=== PATIENT | male | born 1975 | race Caucasian/White ===

== ENCOUNTER → 2017-02-12 | Outpatient (CLI) | payer MEDICAID, SELFPAY | PROVIDERS: Family Provider Emergency Medicine; Visit Provider Nurse Practitioner Family | DX: Z02.4 Encounter for examination for driving license (principal) ==

== ENCOUNTER → 2017-05-21 09:54 | Outpatient (CLI) | payer SELFPAY | PROVIDERS: PCP Emergency Medicine; Visit Provider Nurse Practitioner Family | DX: Z02.4 Encounter for examination for driving license (principal) ==

== ENCOUNTER → 2019-03-28 18:14 | Outpatient (CLI) | payer OTHER, SELFPAY ==
[2019-03-28 18:59] LABS: Basophils % 0.9 % (0.1-2.0); Eosinophils # 0.2 K/mm3 (0.0-0.4); Eosinophils % 4.2 % (0.1-12.0); Hematocrit 41.5 % (42.0-52.0); Hemoglobin 14.1 g/dL (14.1-18.0); Lymphocytes # 1.5 K/mm3 (0.7-4.5); Lymphocytes % 30.6 % (10-50); Mean Corpuscular Hemoglobin 31.5 pg (27.0-31.2); Mean Corpuscular Volume 92.5 fl (80-94); Mean Platelet Volume 8.6 fl (7.4-10.4); Monocytes # 0.4 K/mm3 (0.1-1.0); Monocytes % 7.6 % (1.7-9.3); Neutrophils # 2.8 K/mm3 (1.8-7.8); Neutrophils % 56.7 % (37.0-80.0); Platelet Count 207 K/mm3 (142-424); Red Blood Count 4.49 M/mm3 (4.60-6.20); Red Cell Distribution Width 13.1 % (11.5-17.5); White Blood Count 4.9 K/mm3 (4.8-10.8)
[2019-03-28 19:09] LABS: Alanine Aminotransferase 69 U/L (12-78); Albumin Level 4.1 gm/dL (3.4-5.0); Albumin/Globulin Ratio 1.6 (1.1-1.8); Alkaline Phosphatase 76 U/L (46-116); Anion Gap 13.1 mEq/L (5-15); Aspartate Amino Transferase 29 U/L (15-37); Bilirubin,Total 0.4 mg/dL (0.2-1.0); Blood Urea Nitrogen 11 mg/dL (7-18); Calcium 8.6 mg/dL (8.5-10.1); Carbon Dioxide 28 mmol/L (21.0-32.0); Chloride 102 mmol/L (98-107); Creatinine,Serum 1.26 mg/dL (0.70-1.30); Estimated Glomerular Filt Rate 62 ml/min (>60); GFR (African American) 75 ML/MIN (>60); Globulin 2.6 gm/dl (1.3-3.2); Glucose 283 mg/dL (74-106); Potassium 4.1 mmoL/L (3.5-5.1); Sodium 139 mmol/L (136-145); Total Protein,Serum 6.7 gm/dL (6.4-8.2)
[2019-03-28 19:58] LABS: Erythrocyte Sedimentation Rate 15 mm/hr (0-15)
[2019-03-30 16:48] LABS: Hemoglobin A1C 7.9 % (0.0-7.0)
== END ==
PROVIDERS: Visit Provider Emergency Medicine
DX: K52.9 Noninfective gastroenteritis and colitis, unspecified (principal); R73.9 Hyperglycemia, unspecified
CPT/HCPCS: 80053; 83036; 85025; 85651

== ENCOUNTER → 2019-04-07 08:17 | Outpatient (CLI) | payer OTHER, SELFPAY ==
--- NOTE | 2019-04-07 08:24 | MR_ITS ---
PROCEDURE: MR HEAD/BRAIN WO CON CLINICAL INDICATION: headaches Severe current headache COMPARISON: No exams were available for comparison TECHNIQUE: Routine multiplanar multi echo sequences are performed without gadolinium enhancement. FINDINGS: No midline shift, mass effect, intracranial hemorrhage, or hydrocephalus. No evidence of acute infarction The cerebellopontine angles, cerebellum, and brainstem are unremarkable. There is normal soliman-white matter differentiation with no abnormal white matter signal intensity evident. The pituitary, optic chiasm, corpus callosum, and craniocervical junction have an unremarkable appearance. No mastoid effusion or sinus air-fluid level. There is a small retention cyst in the floor the right maxillary sinus with mild mucosal thickening of the right maxillary sinus floor. There tension cyst measures approximately 12 mm. IMPRESSION: No acute intracranial findings Dictated by: Elgin Becerril MD 04/09/2019 09:31 Electronically signed by Elgin Becerril MD in [place] 04/09/2019 09:31
--- NOTE | 2019-04-07 08:58 | XR_ITS ---
PROCEDURE: XR CERVICAL SPINE 5V CLINICAL INDICATION: neck pain Neck pain with headache COMPARISON: No exams were available for comparison FINDINGS: Normal alignment. No fracture or dislocation. Minimal degenerative disc disease is noted at C5-C6 with small anterior osteophytes. The foramina are widely patent. No evidence of cervical rib or lytic or blastic change. IMPRESSION: Minimal degenerative disc disease at C5-C6 Dictated by: Elgin Becerril MD 04/07/2019 13:14 Electronically signed by Elgin Becerril MD in [place] 04/07/2019 13:14
== END ==
PROVIDERS: PCP Emergency Medicine; Visit Provider Emergency Medicine
DX: R51 Headache (principal); M54.2 Cervicalgia
CPT/HCPCS: 70551; 72050

== ENCOUNTER 2019-09-18 12:10 | Emergency (ER) | payer OTHER, SELFPAY ==
[2019-09-18 12:12] VITALS: BP 167/129; PULSE 103; RESP 18; TEMP 36.6; O2SAT 97; BMI 34.0
--- NOTE | 2019-09-18 12:19 | HMH.EDEXTP ---
ED Disposition Clinical Impression: Shoulder injury Qualifiers: Encounter type: initial encounter Laterality: right Qualified Code(s): S49.91XA - Unspecified injury of right shoulder and upper arm, initial encounter Disposition: Home, Self-Care Condition on Discharge: Good Instructions: DI for Acute Pain -- Adult, DI for Shoulder Sprain Referrals: Estephanie Hooks MD [Physician] - 3 days - Critical Care Critical Care Time: No Attestation: On , the high probability of a clinically significant, sudden or life threatening deterioration of the following system(s) required my full and direct attention, intervention and personal management. The time I documented below is in addition to time spent performing reported procedures but includes the following listed in this critical care notation. Medical Decision Making - Medical Records Medical records reviewed: Yes: I reviewed the patient's medical records. - Lance Inquiry Pt receiving controlled substance: No Vital Signs: 09/18/19 12:12 Temperature 98 F Temperature Source Oral Pulse Rate [Left Radial] 103 H Respiratory Rate 18 Blood Pressure [Right Arm] 167/129 H Blood Pressure Mean [Right Arm] 141 Blood Pressure Position [Right Arm] Sitting 02 Sat by Pulse Oximetry 97 Oxygen Delivery Method Room Air Orders (Tests/Meds): ED MEDICATIONS Discontinued Medications Generic Name Dose Route Start Last Admin Trade Name Freq PRN Reason Stop Dose Admin Ibuprofen 600 mg 09/18/19 12:22 09/18/19 12:26 Motrin 600mg Tablet PO 09/18/19 12:23 600 mg ONCE ONE Administration ORDERS Category Date Time Status Humerus XR right [XR humerus RT] Stat Exams 09/18/19 12:21 Taken XR shoulder RT min 2V Stat Exams 09/18/19 12:21 Taken - Radiology Data #1 Image(s): Humerus Image Reviewed: Yes I reviewed the patient's radiology image Preliminary Findings: Normal/NAD #2 Image(s): Shoulder Image Reviewed: Yes I reviewed the patient's radiology image Preliminary Findings: Normal/NAD Medical Decision Narrative: Shoulder x-ray and humerus x-ray with no acute fracture or dislocation. Possible rotator cuff injury. Given sling, recommended anti-inflammatories, rest and follow-up outpatient with orthopedic surgery for further evaluation. Extremity Problem HPI - General Stated complaint: AO 09/15/19 fall possible broken R shoulder Time Seen by Provider: 09/18/19 12:19 Mode of Arrival: Ambulatory Source of Information: Patient Limitations: No Limitations - History of Present Illness HPI Narrative: This is a 43-year-old male with no significant past medical history, [id number], who presents to the emergency department for pain in the right proximal humerus that radiates up to his shoulder and towards his head after a fall that occurred 3 days ago. Any sort of movement makes the pain worse. He had a mechanical fall, tripping and falling onto his right elbow onto the sidewalk. He denies any pain in his elbow, forearm, wrist, hand. He did not hit his head, denies any loss of consciousness. Pain better with rest. - Related Data Previous Rx's Medication Instructions Recorded bnxopkgzpf-[id number]-gqbvxxhy 1 cap PO Q6H PRN #15 cap 03/28/19 50 mg-300 mg-40 mg capsule aspirin 81 mg tablet,delayed 81 mg PO DAILY #90 tab 04/12/19 release topiramate 50 mg tablet See Rx Instructions .ROUTE 05/03/19 .COMPLEX #90 tab atorvastatin 10 mg tablet See Rx Instructions .ROUTE 07/26/19 .COMPLEX #90 tab lisinopril 10 mg tablet See Rx Instructions .ROUTE 07/26/19 .COMPLEX #90 tab metformin 500 mg tablet See Rx Instructions .ROUTE 07/26/19 .COMPLEX #90 tab Allergies Allergy/AdvReac Type Severity Reaction Status Date / Time Penicillins [PENICILLINS] Allergy Unknown Verified 03/28/19 13:41 [facility] History - Hepatitis A Screen Attestation statement:: This patient has been screened for Hepatitis A risk factors. I hav
--- NOTE | 2019-09-18 12:21 | XR_ITS ---
PROCEDURE: XR SHOULDER RT MIN 2V CLINICAL INDICATION: Fall x 3 days ago, prox humerus/shoulder pain Limited movements of the shoulder. COMPARISON: No exams were available for comparison FINDINGS: No fracture or dislocation. No lytic or blastic change. There is normal mineralization. The joint spaces: Hypertrophic osteoarthrosis of the acromioclavicular and glenoid humeral articulations. Other findings:The visualized right clavicle, acromion, scapular line proximal right humerus appear intact. IMPRESSION: 1. No acute findings. 2. Hypertrophic osteoarthrosis of the right AC joint. Mild/moderate arthritis of the right glenohumeral articulation. Dictated by: Valentin Scott 09/18/2019 13:29 Electronically signed by Valentin Scott in [place] 09/18/2019 13:29
--- NOTE | 2019-09-18 12:21 | XR_ITS ---
PROCEDURE: XR HUMERUS RT CLINICAL INDICATION: fall, prox humerus/shoulder pain COMPARISON: No exams were available for comparison FINDINGS: No fracture or dislocation. No lytic or blastic change. There is normal mineralization. The joint spaces: Possible mild/moderate osteoarthrosis of the acromioclavicular and glenohumeral articulations of the right shoulder. Other findings:There is an enthesophyte of the olecranon seen posteriorly on the lateral view, indicative of calcific triceps tendinopathy. Likely there is soft tissue swelling of the extremity proximal to the elbow joint. Recommend clinical correlation IMPRESSION: 1. Negative for acute fracture or dislocation. 2. Possible mild right shoulder osteoarthrosis. 3. Posteriorly an enthesophyte of the olecranon, possibly triceps calcific tendinopathy. Dictated by: Valentin Scott 09/18/2019 13:23 Electronically signed by Valentin Scott in [place] 09/18/2019 13:23
[2019-09-18 13:10] VITALS: BP 151/115; PULSE 99; RESP 18; TEMP 36.6; O2SAT 97
== END 2019-09-18 13:11 | disposition home or self-care (01) ==
PROVIDERS: Emergency Provider Emergency Medicine; PCP Emergency Medicine
DX: S49.91XA Unspecified injury of right shoulder and upper arm, initial encounter (principal); W01.0XXA Fall on same level from slipping, tripping and stumbling without subsequent striking against object, initial encounter; Y92.019 Unspecified place in single-family (private) house as the place of occurrence of the external cause; I10 Essential (primary) hypertension; E11.9 Type 2 diabetes mellitus without complications; Z79.84 Long term (current) use of oral hypoglycemic drugs; F41.9 Anxiety disorder, unspecified; Z88.0 Allergy status to penicillin; Z79.899 Other long term (current) drug therapy
CPT/HCPCS: 73030; 73060; 99282

== ENCOUNTER → 2019-10-04 14:02 | Outpatient (CLI) | payer OTHER, SELFPAY ==
[2019-10-04 14:22] LABS: Microalbumin/Creatinine Ratio 30.6
[2019-10-04 14:23] LABS: Chloride 100 mmol/L (98-107); Potassium 4.2 mmoL/L (3.5-5.1); Sodium 138 mmol/L (136-145)
[2019-10-04 14:25] LABS: Blood Urea Nitrogen 9 mg/dl (9-20); Estimated Glomerular Filt Rate 122 ml/min (>60); GFR (African American) 148 ML/MIN (>60)
[2019-10-04 14:26] LABS: Alanine Aminotransferase 44 U/L (12-78); Albumin Level 4.6 g/dl (3.5-5.0); Albumin/Globulin Ratio 1.7 (1.1-1.8); Alkaline Phosphatase 60 U/L (38-126); Anion Gap 16.2 mEq/L (5-15); Aspartate Amino Transferase 32 U/L (17-59); Bilirubin,Total 0.7 mg/dl (0.2-1.3); Carbon Dioxide 26 mmol/L (22.0-30.0); Cholesterol 214 mg/dl (140-200); Globulin 2.7 g/dL (1.3-3.2); Total Protein,Serum 7.3 g/dl (6.3-8.2); Triglycerides 206 mg/dl (30-150); VLDL Cholesterol 41 mg/dL (0-40)
[2019-10-04 14:27] LABS: Calcium 9.6 mg/dl (8.4-10.2); Chol/HDL Ratio 4.7 (1-3.5); Glucose 242 mg/dl (74-100); HDL Cholesterol 46 mg/dl (40-60)
[2019-10-04 14:37] LABS: Direct LDL Cholesterol 121.74 mg/dL (100-129)
[2019-10-04 14:39] LABS: Basophils % 0.5 % (0.1-2.0); Eosinophils # 0.1 K/mm3 (0.0-0.4); Eosinophils % 1.6 % (0.1-12.0); Hematocrit 44.1 % (42.0-52.0); Hemoglobin 15.7 g/dL (14.1-18.0); Lymphocytes # 1.4 K/mm3 (0.7-4.5); Lymphocytes % 22.3 % (10-50); Mean Corpuscular HGB Conc 35.6 g/dL (31.8-35.4); Mean Corpuscular Hemoglobin 32.3 pg (27.0-31.2); Mean Corpuscular Volume 90.9 fl (80-94); Mean Platelet Volume 8.5 fl (7.4-10.4); Monocytes # 0.3 K/mm3 (0.1-1.0); Monocytes % 5.2 % (1.7-9.3); Neutrophils # 4.6 K/mm3 (1.8-7.8); Neutrophils % 70.4 % (37.0-80.0); Platelet Count 257 K/mm3 (142-424); Red Blood Count 4.85 M/mm3 (4.60-6.20); Red Cell Distribution Width 13.5 % (11.5-17.5); White Blood Count 6.5 K/mm3 (4.8-10.8)
[2019-10-04 14:43] LABS: T4 (Thyroxine) 9.2 ug/dl (5.53-11.0)
[2019-10-04 14:55] LABS: Creatinine,Urine Random 262 mg/dL (Not Estab.)
[2019-10-04 14:56] LABS: Thyroid Stimulating Hormone 0.39 uIU/mL (0.465-4.68)
[2019-10-04 15:14] LABS: Hemoglobin A1C 8.8 % (4.0-6.0)
== END ==
PROVIDERS: Visit Provider Nurse Practitioner Family
DX: E11.9 Type 2 diabetes mellitus without complications (principal); R53.83 Other fatigue; Z79.84 Long term (current) use of oral hypoglycemic drugs; Z79.899 Other long term (current) drug therapy
CPT/HCPCS: 80053; 80061; 82043; 82570; 83036; 84436; 84443; 85025

== ENCOUNTER → 2019-10-24 13:24 | Outpatient (CLI) | payer OTHER, SELFPAY ==
--- NOTE | 2019-10-24 13:25 | MR_ITS ---
PROCEDURE: MR SHOULDER RT WO CON CLINICAL INDICATION: Rt shoulder pain COMPARISON: No exams were available for comparison TECHNIQUE: Routine multiplanar multi echo sequences are performed without gadolinium enhancement. FINDINGS: There is a complete tear involving the supraspinatus tendon with retraction of the musculotendinous fibers. Fluid is present in the subacromion subdeltoid region. The infraspinatus tendon shows some thickening distally with oblique areas of increased T2 signal probably related to fluid infiltrating into the tendon fibers from the shoulder joint effusion. Partial tear is are also a consideration. A complete tear is not felt to be present. The subscapularis and teres minor tendons are intact. There is a medium-sized shoulder joint effusion. No obvious labral tear. The bicipital tendon is in place. There is focal increased T2 signal along the humeral head laterally and could be posttraumatic or secondary to subchondral cystic changes. There are hypertrophic changes of the acromioclavicular joint. IMPRESSION: 1. Complete tear of the supraspinatus tendon with retraction of the musculotendinous fibers. 2. Moderate size shoulder joint effusion with tendinopathy/tendinosis of the infraspinatus tendon with scattered oblique areas of increased T2 signal which may be due to fluid between the tendon fibers. Partial tear could have a similar appearance 3. Bone contusion versus subchondral cystic change of the humeral head laterally Dictated by: Elgin Becerril MD 10/24/2019 15:12 Elgin Bceerril MD in [place] 10/24/2019 15:12
== END ==
PROVIDERS: PCP Emergency Medicine; Visit Provider Orthopaedic Surgery
DX: S49.91XA Unspecified injury of right shoulder and upper arm, initial encounter (principal)
CPT/HCPCS: 73221

== ENCOUNTER → 2020-05-22 17:31 | Outpatient (CLI) | payer OTHER, SELFPAY ==
[2020-05-22 17:56] LABS: Basophils % 0.4 % (0.1-2.0); Eosinophils # 0.1 K/mm3 (0.0-0.4); Eosinophils % 1.1 % (0.1-12.0); Hematocrit 45.3 % (42.0-52.0); Hemoglobin 15.5 g/dL (14.1-18.0); Lymphocytes # 1.8 K/mm3 (0.7-4.5); Lymphocytes % 25.1 % (10-50); Mean Corpuscular HGB Conc 34.2 g/dL (31.8-35.4); Mean Corpuscular Hemoglobin 30.5 pg (27.0-31.2); Mean Corpuscular Volume 89.3 fl (80-94); Mean Platelet Volume 7.5 fl (7.4-10.4); Monocytes # 0.4 K/mm3 (0.1-1.0); Monocytes % 5.9 % (1.7-9.3); Neutrophils # 4.7 K/mm3 (1.8-7.8); Neutrophils % 67.5 % (37.0-80.0); Platelet Count 260 K/mm3 (142-424); Red Blood Count 5.07 M/mm3 (4.60-6.20); Red Cell Distribution Width 14.6 % (11.5-17.5)
[2020-05-22 18:02] LABS: Alanine Aminotransferase 22 U/L (12-78); Albumin Level 5.1 g/dl (3.5-5.0); Alkaline Phosphatase 70 U/L (38-126); Anion Gap 16.1 mEq/L (5-15); Aspartate Amino Transferase 22 U/L (17-59); Bilirubin,Total 0.5 mg/dl (0.2-1.3); Blood Urea Nitrogen 12 mg/dl (9-20); Calcium 9.9 mg/dl (8.4-10.2); Carbon Dioxide 27 mmol/L (22.0-30.0); Chloride 100 mmol/L (98-107); Chol/HDL Ratio 5.6 (1-3.5); Cholesterol 242 mg/dl (140-200); Estimated Glomerular Filt Rate 104 ml/min (>60); GFR (African American) 126 ML/MIN (>60); Globulin 2.5 g/dL (1.3-3.2); Glucose 173 mg/dl (74-100); HDL Cholesterol 43 mg/dl (40-60); Potassium 4.1 mmoL/L (3.5-5.1); Sodium 139 mmol/L (136-145); Total Protein,Serum 7.6 g/dl (6.3-8.2); Triglycerides 334 mg/dl (30-150); VLDL Cholesterol 67 mg/dL (0-40)
[2020-05-22 18:13] LABS: Direct LDL Cholesterol 136.13 mg/dL (100-129)
[2020-05-22 18:19] LABS: Free T4 (Free Thyroxine) 1.01 ng/dl (0.78-2.19)
[2020-05-22 18:33] LABS: Thyroid Stimulating Hormone 1.23 uIU/mL (0.465-4.68)
== END ==
PROVIDERS: Visit Provider Emergency Medicine
DX: E11.9 Type 2 diabetes mellitus without complications (principal); I10 Essential (primary) hypertension; Z79.84 Long term (current) use of oral hypoglycemic drugs
CPT/HCPCS: 80053; 80061; 83036; 84439; 84443; 85025

== ENCOUNTER → 2020-06-19 18:09 | Outpatient (CLI) | payer OTHER, SELFPAY ==
[2020-06-19 18:57] LABS: Anion Gap 14.3 mEq/L (5-15); Blood Urea Nitrogen 11 mg/dl (9-20); Calcium 9.6 mg/dl (8.4-10.2); Carbon Dioxide 28 mmol/L (22.0-30.0); Chloride 101 mmol/L (98-107); Estimated Glomerular Filt Rate 104 ml/min (>60); GFR (African American) 126 ML/MIN (>60); Glucose 137 mg/dl (74-100); Potassium 4.3 mmoL/L (3.5-5.1); Sodium 139 mmol/L (136-145)
== END ==
PROVIDERS: Visit Provider Emergency Medicine
DX: E11.9 Type 2 diabetes mellitus without complications (principal); Z79.84 Long term (current) use of oral hypoglycemic drugs
CPT/HCPCS: 80048

== ENCOUNTER → 2020-08-16 18:09 | Outpatient (CLI) | payer OTHER, SELFPAY ==
[2020-08-16 18:55] LABS: Amphetamine/Metha Screen,Urine Negative ng/ml (<1000)
[2020-08-16 18:56] LABS: Barbiturates Screen,Urine Negative ng/ml (<200); Benzodiazepines Screen,Urine Negative ng/ml (<200)
[2020-08-16 18:57] LABS: Cannabinoid Screen,Urine Negative ng/ml (<50)
[2020-08-16 18:58] LABS: Cocaine Screen,Urine Negative ng/ml (<300); Methadone Screen,Urine Negative ng/ml (<300)
[2020-08-16 18:59] LABS: Opiate Screen,Urine Positive ng/ml (<300)
[2020-08-16 19:00] LABS: Phencyclidine Screen,Urine Negative ng/ml (<25)
== END ==
PROVIDERS: Visit Provider Emergency Medicine
DX: S49.90XA Unspecified injury of shoulder and upper arm, unspecified arm, initial encounter (principal); G62.9 Polyneuropathy, unspecified
CPT/HCPCS: 80305

== ENCOUNTER → 2020-10-18 17:58 | Outpatient (CLI) | payer OTHER, SELFPAY ==
[2020-10-18 19:49] LABS: Microalbumin/Creatinine Ratio 114.2
[2020-10-18 20:43] LABS: Creatinine,Urine Random 286 mg/dL (Not Estab.)
[2020-10-18 20:44] LABS: Hemoglobin A1C 8.4 % (4.0-6.0)
== END ==
PROVIDERS: Visit Provider Emergency Medicine
DX: E11.9 Type 2 diabetes mellitus without complications (principal); Z79.84 Long term (current) use of oral hypoglycemic drugs
CPT/HCPCS: 82043; 82570; 83036

== ENCOUNTER → 2020-12-18 18:20 | Outpatient (CLI) | payer OTHER, SELFPAY ==
[2020-12-18 20:35] LABS: Amphetamine/Metha Screen,Urine Negative ng/ml (<1000)
[2020-12-18 20:36] LABS: Barbiturates Screen,Urine Negative ng/ml (<200)
[2020-12-18 20:37] LABS: Benzodiazepines Screen,Urine Negative ng/ml (<200); Cannabinoid Screen,Urine Negative ng/ml (<50)
[2020-12-18 20:38] LABS: Cocaine Screen,Urine Negative ng/ml (<300)
[2020-12-18 20:39] LABS: Methadone Screen,Urine Negative ng/ml (<300); Opiate Screen,Urine Positive ng/ml (<300)
[2020-12-18 20:40] LABS: Phencyclidine Screen,Urine Negative ng/ml (<25)
== END ==
PROVIDERS: Visit Provider Emergency Medicine
DX: Z79.899 Other long term (current) drug therapy (principal)
CPT/HCPCS: 80305

== ENCOUNTER → 2021-07-28 14:03 | Outpatient (CLI) | payer OTHER, SELFPAY ==
[2021-07-28 13:48] LABS: Phencyclidine Screen,Urine Negative ng/ml (<25)
[2021-07-28 14:15] LABS: Amphetamine/Metha Screen,Urine Negative ng/ml (<1000)
[2021-07-28 14:16] LABS: Barbiturates Screen,Urine Negative ng/ml (<200); Benzodiazepines Screen,Urine Negative ng/ml (<200)
[2021-07-28 14:17] LABS: Cannabinoid Screen,Urine Negative ng/ml (<50)
[2021-07-28 14:18] LABS: Cocaine Screen,Urine Negative ng/ml (<300)
[2021-07-28 15:29] LABS: Methadone Screen,Urine Negative ng/ml (<300); Opiate Screen,Urine Positive ng/ml (<300)
== END ==
PROVIDERS: PCP Emergency Medicine; Visit Provider Emergency Medicine
DX: G62.9 Polyneuropathy, unspecified (principal)
CPT/HCPCS: 80305

== ENCOUNTER → 2021-08-07 08:13 | Outpatient (CLI) | payer OTHER, SELFPAY ==
--- NOTE | 2021-08-07 08:14 | CA_ITS ---
FINAL REPORT TECHNIQUE: Grayscale, color Doppler and duplex Doppler ultrasound of the kidneys, aorta and renal arteries was performed. Multiple velocities were measured. CLINICAL HISTORY: HTN FINDINGS: Aorta velocity: 120 cm/sec Right kidney: 13.4 cm. No evidence of hydronephrosis or mass. Right intrarenal RI: 0.61 Right renal artery velocity: 173 cm/sec. Right RAR (Renal artery-Aortic Ratio): 1.44 Left Kidney: 12.8 cm. No evidence of hydronephrosis or mass. Left intrarenal RI: 0.58 Left renal artery velocity: 171 cm/sec. Left RAR (Renal Artery-Aortic Ratio): 1.41 IMPRESSION: No evidence of significant renal artery stenosis. CT angiogram or postcontrast MR angiogram would be more sensitive for evaluation of possible renal artery stenosis. Reviewed, Interpreted and Dictated by Edson Reynoso III, MD Transcribed by Yuliana Garcia Authenticated and [facility]
== END ==
PROVIDERS: PCP Emergency Medicine; Visit Provider Emergency Medicine
DX: I10 Essential (primary) hypertension (principal)
CPT/HCPCS: 93976

== ENCOUNTER → 2021-09-29 06:56 | Outpatient (CLI) | payer OTHER, SELFPAY ==
[2021-09-29 18:47] LABS: Basophils # 0.1 K/mm3 (0-0.2); Basophils % 0.5 % (0.1-2.0); Eosinophils # 0.2 K/mm3 (0.0-0.4); Eosinophils % 2.5 % (0.1-12.0); Hematocrit 45.2 % (42.0-52.0); Hemoglobin 14.8 g/dL (14.1-18.0); Lymphocytes # 1.8 K/mm3 (0.7-4.5); Lymphocytes % 20.6 % (10-50); Mean Corpuscular HGB Conc 32.8 g/dL (31.8-35.4); Mean Corpuscular Hemoglobin 32.3 pg (27.0-31.2); Mean Corpuscular Volume 98.4 fl (80-94); Mean Platelet Volume 8.1 fl (7.4-10.4); Monocytes # 0.6 K/mm3 (0.1-1.0); Monocytes % 7.4 % (1.7-9.3); Neutrophils % 69.1 % (37.0-80.0); Platelet Count 305 K/mm3 (142-424); Red Blood Count 4.59 M/mm3 (4.60-6.20); Red Cell Distribution Width 13.2 % (11.5-17.5); White Blood Count 8.7 K/mm3 (4.8-10.8)
[2021-09-29 18:50] LABS: Alanine Aminotransferase 28 U/L (12-78); Albumin Level 4.4 g/dl (3.5-5.0); Albumin/Globulin Ratio 1.7 (1.1-1.8); Alkaline Phosphatase 74 U/L (38-126); Anion Gap 13.4 mEq/L (5-15); Aspartate Amino Transferase 26 U/L (17-59); Bilirubin,Total 0.3 mg/dl (0.2-1.3); Blood Urea Nitrogen 11 mg/dl (9-20); Calcium 9.7 mg/dl (8.4-10.2); Carbon Dioxide 27 mmol/L (22.0-30.0); Chloride 102 mmol/L (98-107); Chol/HDL Ratio 6.1 (1-3.5); Cholesterol 233 mg/dl (140-200); Estimated Glomerular Filt Rate 121 ml/min (>60); GFR (African American) 146 ML/MIN (>60); Globulin 2.6 g/dL (1.3-3.2); Glucose 235 mg/dl (74-100); HDL Cholesterol 38 mg/dl (40-60); Potassium 4.4 mmoL/L (3.5-5.1); Sodium 138 mmol/L (136-145); Triglycerides 371 mg/dl (30-150); VLDL Cholesterol 74 mg/dL (0-40)
[2021-09-29 19:06] LABS: Free T4 (Free Thyroxine) 0.79 ng/dl (0.78-2.19)
[2021-09-29 19:07] LABS: 25-OH Vitamin D, Total 35.4 ng/mL (30-100)
[2021-09-29 19:20] LABS: Thyroid Stimulating Hormone 0.26 uIU/mL (0.465-4.68)
[2021-09-29 20:41] LABS: Hemoglobin A1C 6.9 % (4.0-6.0)
[2021-10-01 08:37] LABS: Direct LDL Cholesterol 123 mg/dL (100-129)
== END ==
PROVIDERS: PCP Emergency Medicine; Visit Provider Emergency Medicine
DX: E11.9 Type 2 diabetes mellitus without complications (principal); E55.9 Vitamin D deficiency, unspecified; Z79.84 Long term (current) use of oral hypoglycemic drugs; Z79.899 Other long term (current) drug therapy
CPT/HCPCS: 80053; 80061; 82306; 83036; 84439; 84443; 85025

== ENCOUNTER → 2021-12-22 12:13 | Outpatient (CLI) | payer OTHER, SELFPAY | PROVIDERS: PCP Emergency Medicine; Visit Provider Internal Medicine | DX: R07.9 Chest pain, unspecified (principal); I10 Essential (primary) hypertension; E11.9 Type 2 diabetes mellitus without complications; E78.5 Hyperlipidemia, unspecified; E66.9 Obesity, unspecified; Z68.30 Body mass index [BMI] 30.0-30.9, adult; Z12.5 Encounter for screening for malignant neoplasm of prostate | CPT/HCPCS: 36415; 71046; 80048; 80061; 80076; 83735; 84439; 84443; 85025; G0103 ==

== ENCOUNTER → 2021-12-26 08:46 | Outpatient (CLI) | payer OTHER, SELFPAY ==
--- NOTE | 2021-12-22 12:36 | XR_ITS ---
FINAL REPORT CLINICAL HISTORY: Precordial chest pain FINDINGS: Two views of the chest were obtained. The heart size and pulmonary vascularity are within normal limits. The mediastinum is normal. There are mild left lung base opacities favoring atelectasis. There is no pneumothorax. The bony thorax is intact. IMPRESSION: Mild left lung base opacities favoring atelectasis. Reviewed, Interpreted and Dictated by Edson Reynoso III, MD Transcribed by Hallie Jean Authenticated and [facility]
[2021-12-22 12:43] LABS: Basophils # 0.1 K/mm3 (0-0.2); Basophils % 0.9 % (0.1-2.0); Eosinophils # 0.3 K/mm3 (0.0-0.4); Eosinophils % 4.5 % (0.1-12.0); Hematocrit 40.5 % (42.0-52.0); Hemoglobin 13.9 g/dL (14.1-18.0); Lymphocytes # 1.8 K/mm3 (0.7-4.5); Lymphocytes % 29.3 % (10-50); Mean Corpuscular HGB Conc 34.5 g/dL (31.8-35.4); Mean Corpuscular Hemoglobin 32.6 pg (27.0-31.2); Mean Corpuscular Volume 94.5 fl (80-94); Mean Platelet Volume 7.5 fl (7.4-10.4); Monocytes # 0.4 K/mm3 (0.1-1.0); Monocytes % 5.9 % (1.7-9.3); Neutrophils # 3.7 K/mm3 (1.8-7.8); Neutrophils % 59.4 % (37.0-80.0); Platelet Count 236 K/mm3 (142-424); Red Blood Count 4.28 M/mm3 (4.60-6.20); Red Cell Distribution Width 13.2 % (11.5-17.5); White Blood Count 6.2 K/mm3 (4.8-10.8)
[2021-12-22 13:08] LABS: Alanine Aminotransferase 33 U/L (12-78); Alkaline Phosphatase 77 U/L (38-126); Anion Gap 11.1 mEq/L (5-15); Aspartate Amino Transferase 28 U/L (17-59); Bilirubin,Direct 0.1 mg/dl (0.0-0.4); Bilirubin,Indirect 0.4 mg/dL (0.0-0.9); Bilirubin,Total 0.5 mg/dl (0.2-1.3); Bilirubin,Unconjugated 0.4 mg/dL (0.0-1.1); Blood Urea Nitrogen 9 mg/dl (9-20); Calcium 8.8 mg/dl (8.4-10.2); Carbon Dioxide 33 mmol/L (22.0-30.0); Chloride 97 mmol/L (98-107); Chol/HDL Ratio 4.6 (1-3.5); Cholesterol 180 mg/dl (140-200); Estimated Glomerular Filt Rate 120 ml/min (>60); GFR (African American) 146 ML/MIN (>60); Glucose 226 mg/dl (74-100); HDL Cholesterol 39 mg/dl (40-60); Magnesium 1.5 mg/dl (1.6-2.3); Potassium 4.1 mmoL/L (3.5-5.1); Sodium 137 mmol/L (136-145); Total Protein,Serum 6.2 g/dl (6.3-8.2); Triglycerides 328 mg/dl (30-150); VLDL Cholesterol 66 mg/dL (0-40)
[2021-12-22 13:23] LABS: Free T4 (Free Thyroxine) 0.93 ng/dl (0.78-2.19)
[2021-12-22 13:26] LABS: Direct LDL Cholesterol 80.48 mg/dL (100-129)
[2021-12-22 13:38] LABS: Prostate Specific Ag Screen 0.1 ng/ml (0.0-4.0); Thyroid Stimulating Hormone 0.81 uIU/mL (0.465-4.68)
--- NOTE | 2021-12-26 08:48 | CA_ITS ---
APPROVED REPORT EXAM: Comprehensive 2D, Doppler, and color-flow Echocardiogram Piledriver Carpenter: Adelaide Espitia RT(R) Ht: 6 ft 1 in Wt: 269lbs BSA: 2.44 BP: 141/86 mmHg Indications: CP, HTN, DM, obesity, hyperlipidemia, dizziness Echo Enhancing Agent Indication: Endocardial border delineation Agent(s) / Amount(s) Used: Definity 2 cc 2D Dimensions LVOT 2.23 cm (M/F) 1.5-2.5 M-Mode Dimensions RVDd 2.73 cm (0.9-2.6) LA Diam 3.59 cm (1.9-4.0) LVDd 5.41 cm (3.5-5.7) Ao Diam 3.32 cm (2.0-3.7) LVDs 3.84 cm (3.5-5.7) IVSd 1.21 cm (0.6-1.1) PWd 1.48 cm (0.6-1.1) EF (Teich) 55.30% FS 29.00% EDV (Teich) 141.90 mL ESV (Teich) 63.50 mL LV Diastology E Decel Time 187.00 (160-240 msec) E/A Ratio 1.0 MED E' 9.20 (< 7 cm/sec) E'/MED E' Ratio 7.88 (>14) LAT E' 9.70 (<10 cm/sec) E/LAT E' Ratio 7.47 (>14) Mitral Valve MV E Max Bebo. 73.00 (40-130 cm/s) MV A Velocity 73.00 (40-130 cm/s) E/A Ratio 1.00 MV Decel. Time 187.00 (160-240 ms) MV PHT 55.00 ms Left Ventricle Technically difficult study because of the patient factors and poor acoustic windows, Definity contrast was utilized to delineate the endocardial surfaces. Left atrium is normal size, left ventricle is normal size, estimated ejection fraction 55% with no regional wall motion abnormality, diastolic parameters are within normal range. Right Ventricle Right atrium and right ventricle are normal size and contractility. Aortic Valve Aortic valve is grossly normal, there is no aortic stenosis or aortic insufficiency. Mitral Valve Mitral valve is grossly normal, there is trace mitral regurgitation. Tricuspid Valve Tricuspid valve grossly normal, there is trace tricuspid regurgitation, tricuspid regurgitation jet velocity is inadequate for calculation of the right ventricular systolic pressure. Pulmonic Valve Pulmonic valve is poorly visualized. Great Vessels Aortic root is normal size. Inferior vena cava is poorly visualized. Pericardium No significant pericardial effusion noted. Conclusion 1. Technically difficult study, Definity contrast was utilized to delineate the endocardial surfaces. Normal left ventricular size, preserved left ventricular systolic function estimated ejection fraction 55% with no regional wall motion abnormality, diastolic parameters are within normal range. 2. Trace mitral and tricuspid regurgitation. 3. No significant pericardial effusion noted. 4. Inferior vena cava is poorly visualized. Electronically signed by : Pedro Grace MD 12/26/2021 14:04:17
--- NOTE | 2021-12-26 09:31 | CT_ITS ---
FINAL REPORT CLINICAL HISTORY: cp, htn FINDINGS: Thin section axial CT images of the chest were obtained with contrast. 3D reformatted images were also obtained. This study was performed with techniques to keep radiation doses as low as reasonably achievable (ALARA). Individualized dose reduction techniques using automated exposure control or adjustment of mA and/or kV according to the patient''s size were employed. There is ectasia of the distal aortic arch measuring 35 mm in diameter. There is no evidence of pulmonary embolism. There is no evidence of thoracic aortic aneurysm or dissection. There is no evidence of mediastinal or hilar mass or adenopathy. There is no evidence of pulmonary mass or nodule. No localized inflammatory process is seen within the lungs. There is mild emphysema. Mild bibasilar atelectasis or scar is identified. Limited images of the upper abdomen reveal fatty infiltration of the liver. IMPRESSION: No evidence of pulmonary embolism. Ectasia of the distal aortic arch measuring 35 mm in diameter. Reviewed, Interpreted and Dictated by Edson Reynoso III, MD Transcribed by Yuliana Garcia Authenticated and [facility]
== END ==
LOC: LAB 12-22 13:20 → RT 08:46
PROVIDERS: PCP Emergency Medicine; Visit Provider Internal Medicine
DX: R07.9 Chest pain, unspecified (principal); E11.9 Type 2 diabetes mellitus without complications; I10 Essential (primary) hypertension; E78.5 Hyperlipidemia, unspecified; E66.9 Obesity, unspecified; Z68.30 Body mass index [BMI] 30.0-30.9, adult
CPT/HCPCS: 36415; 71046; 71275; 80048; 80061; 80076; 83735; 84439; 84443; 85025; 93306; G0103; Q9957; Q9967

== ENCOUNTER → 2022-02-25 14:00 | Outpatient (CLI) | payer OTHER, SELFPAY ==
[2022-02-25 21:59] LABS: Phencyclidine Screen,Urine Negative ng/ml (<25)
[2022-02-25 22:08] LABS: Amphetamine/Metha Screen,Urine Negative ng/ml (<1000)
[2022-02-25 22:10] LABS: Benzodiazepines Screen,Urine Negative ng/ml (<200)
[2022-02-25 22:11] LABS: Barbiturates Screen,Urine Negative ng/ml (<200); Cannabinoid Screen,Urine Negative ng/ml (<50)
[2022-02-25 22:12] LABS: Methadone Screen,Urine Negative ng/ml (<300)
[2022-02-25 22:13] LABS: Cocaine Screen,Urine Negative ng/ml (<300); Opiate Screen,Urine Positive ng/ml (<300)
== END ==
PROVIDERS: PCP Emergency Medicine; Visit Provider Emergency Medicine
DX: Z79.899 Other long term (current) drug therapy (principal)
CPT/HCPCS: 80305

== ENCOUNTER → 2022-08-10 13:48 | Outpatient (CLI) | payer OTHER, SELFPAY ==
[2022-08-10 13:41] LABS: Amphetamine/Metha Screen,Urine Negative ng/ml (<1000)
[2022-08-10 13:42] LABS: Barbiturates Screen,Urine Negative ng/ml (<200)
[2022-08-10 13:43] LABS: Benzodiazepines Screen,Urine Negative ng/ml (<200); Cannabinoid Screen,Urine Negative ng/ml (<50)
[2022-08-10 13:44] LABS: Cocaine Screen,Urine Negative ng/ml (<300); Methadone Screen,Urine Negative ng/ml (<300)
[2022-08-10 13:45] LABS: Opiate Screen,Urine Positive ng/ml (<300)
[2022-08-10 13:46] LABS: Phencyclidine Screen,Urine Negative ng/ml (<25)
[2022-08-10 14:10] LABS: Anion Gap 19.1 mEq/L (5-15); Blood Urea Nitrogen 12 mg/dl (9-20); Calcium 9.1 mg/dl (8.4-10.2); Carbon Dioxide 25 mmol/L (22.0-30.0); Chloride 96 mmol/L (98-107); Estimated Glomerular Filt Rate 120 ml/min (>60); GFR (African American) 146 ML/MIN (>60); Glucose 343 mg/dl (74-100); Lipase 107 U/L (23-300); Potassium 4.1 mmoL/L (3.5-5.1); Sodium 136 mmol/L (136-145)
[2022-08-10 14:28] LABS: Hemoglobin A1C 9.5 % (4.0-6.0)
[2022-08-10 14:29] LABS: Microalbumin/Creatinine Ratio 93.3
[2022-08-10 14:33] LABS: Creatinine,Urine Random 108 mg/dL (Not Estab.)
[2022-08-12 12:12] LABS: C-Peptide 5.1 ng/mL (1.1-4.4)
== END ==
PROVIDERS: PCP Emergency Medicine; Visit Provider Emergency Medicine
DX: E11.40 Type 2 diabetes mellitus with diabetic neuropathy, unspecified (principal); E66.9 Obesity, unspecified; Z68.34 Body mass index [BMI] 34.0-34.9, adult; Z79.84 Long term (current) use of oral hypoglycemic drugs; Z79.899 Other long term (current) drug therapy
CPT/HCPCS: 80048; 80305; 82043; 82570; 83036; 83690; 84681

== ENCOUNTER → 2023-02-16 23:37 | Outpatient (CLI) | payer OTHER, SELFPAY ==
[2023-02-16 18:38] LABS: Basophils % 0.5 % (0.1-2.0); Eosinophils # 0.2 K/mm3 (0.0-0.4); Eosinophils % 2.7 % (0.1-12.0); Hematocrit 42.9 % (42.0-52.0); Hemoglobin 14.8 g/dL (14.1-18.0); Lymphocytes # 1.6 K/mm3 (0.7-4.5); Lymphocytes % 29.9 % (10-50); Mean Corpuscular HGB Conc 34.4 g/dL (31.8-35.4); Mean Corpuscular Hemoglobin 33.9 pg (27.0-31.2); Mean Corpuscular Volume 98.6 fl (80-94); Mean Platelet Volume 8.9 fl (7.4-10.4); Monocytes # 0.3 K/mm3 (0.1-1.0); Monocytes % 5.9 % (1.7-9.3); Neutrophils # 3.3 K/mm3 (1.8-7.8); Platelet Count 225 K/mm3 (142-424); Red Blood Count 4.35 M/mm3 (4.60-6.20); Red Cell Distribution Width 13.5 % (11.5-17.5); White Blood Count 5.4 K/mm3 (4.8-10.8)
[2023-02-16 19:21] LABS: Hemoglobin A1C 12.7 % (4.0-6.0)
[2023-02-16 21:24] LABS: Amphetamine/Metha Screen,Urine Negative ng/ml (<1000); Barbiturates Screen,Urine Negative ng/ml (<200); Benzodiazepines Screen,Urine Negative ng/ml (<200); Methadone Screen,Urine Negative ng/ml (<300); Opiate Screen,Urine Positive ng/ml (<300); Phencyclidine Screen,Urine Negative ng/ml (<25)
[2023-02-16 21:27] LABS: Cocaine Screen,Urine Negative ng/ml (<300)
[2023-02-16 22:34] LABS: Cannabinoid Screen,Urine Negative ng/ml (<50)
== END ==
PROVIDERS: PCP Internal Medicine; Visit Provider Internal Medicine
DX: Z00.00 Encounter for general adult medical examination without abnormal findings (principal); Z79.899 Other long term (current) drug therapy; E11.9 Type 2 diabetes mellitus without complications; Z79.84 Long term (current) use of oral hypoglycemic drugs; Z79.85 Long-term (current) use of injectable non-insulin antidiabetic drugs
CPT/HCPCS: 80305; 83036; 85025

== ENCOUNTER 2023-06-30 07:56 | Outpatient (CLI) | payer OTHER, SELFPAY ==
--- NOTE | 2023-06-30 07:57 | NM_ITS ---
APPROVED REPORT Exam: Nuclear Stress Test Indication: HTN, FM HX, PALPITATIONS Patient Location: Outpatient Stress Tech: Megan Gao [place] Tech:Felicia East DAVID RT (R)(N)(M) Ht: 5 ft 11 in Wt: 180 lbs HR: 104 bpm BP: 146/92 mmHg BSA: 2.02 m2 TID: 1.36 BMI: 25.1 History: HTN, FM HX, PALPITATIONS Procedure: Patient exercised on Jayden protocol 10:00 minutes and sec, resting heart rate 97 bpm, resting blood pressure 155/90 mmHg, with exercise maximum heart rate achived was 160 bpm which is 94 % of the maximum predicted heart rate and blood pressure was 231/115 mmHg. Test was stopped due to FATIGUE. Patient denied any complaint of chest pain. Patient has average exercise capacity, achieved 10.1 METs of workload on treadmill, the blood pressure response to exercise was exaggerated. Cardiac Stress and Resting SPECT Images: Cardiac Stress and Resting SPECT images were obtained using technetium 99m Myoview 31.2 mCi stress and 9.99 mCi at rest. Resting and stress imaging in supine and prone positions demonstrate a large sized, moderate, predominantly fixed perfusion defect in the inferior and inferoseptal LV noonan. There is a small region of surrounding reversibility. There is also increased transient ischemic dilatation ratio (TID 1.36), suggestive of possible multivessel disease or balanced ischemia. Gated imaging demonstrates low normal global LV systolic function. There is mild hypokinesis of the basal inferior LV wall. LVEF is calculated at 51%. Conclusion: Large sized, moderate, predominantly fixed perfusion defect in the inferior and inferoseptal LV noonan. There is a small region of surrounding reversibility. There is also increased transient ischemic dilatation ratio (TID 1.36), suggestive of possible multivessel disease or balanced ischemia. Gated imaging demonstrates low normal global LV systolic function. There is mild hypokinesis of the basal inferior LV wall. LVEF is calculated at 51%. Of note, the patient is noted to have an exaggerated hypertensive response to exercise. BP control is recommended. Electronically signed by : Harleen Katz MD 07/01/2023 12:04:58
[2023-06-30] MEDS: SODIUM CHLORIDE 0.9% 10ML SYR (RAD ONLY) 10 ML IV ×2 (08:10→09:15)
--- NOTE | 2023-06-30 09:06 | CA_ITS ---
APPROVED REPORT EXAM: Comprehensive 2D, Doppler, and color-flow Echocardiogram Application Design Engineer: Adelaide Espitia RT(R) Ht: 6 ft 1 in Wt: 261lbs BSA: 2.41 BP: 147/94 mmHg Indications: CP, HTN, DM, hyperlipidemia 2D Dimensions LVEF (Kitchen's) 53.00 % M: 52 - 72 LV Volume 141.70 mL M: 62 - 150 LV Volume Index 58.8 mL/m2 M: 34 - 74 LA Volume 42.10 mL LA Volume Index 17.47 mL/m2 (M/F) 16-34 EF AP4 56.80 % EF AP2 54.9 % EF BP 53.0 % GL Strain -17.7 % M-Mode Dimensions RVDd 3.22 cm (0.9-2.6) LA Diam 2.74 cm (1.9-4.0) LVDd 4.93 cm (3.5-5.7) LVDs 3.43 cm (3.5-5.7) IVSd 0.96 cm (0.6-1.1) PWd 1.18 cm (0.6-1.1) EF (Teich) 57.60% FS 30.40% EDV (Teich) 114.40 mL ESV (Teich) 48.50 mL LV Diastology E Decel Time 150 (160-240 msec) E/A Ratio 0.8 Mitral Valve MV E Max Bebo. 72.0 (40-130 cm/s) MV A Velocity 86.0 (40-130 cm/s) E/A Ratio 0.83 MV PHT 44.0 ms Left Ventricle The left ventricle is normal size. The left ventricular systolic function is normal. The left ventricular ejection fraction is within the normal range. There is normal left ventricular wall thickness. There is normal LV segmental wall motion. The left ventricular diastolic function is normal. LVEF is 55%. Right Ventricle Right ventricle is mildly dilated. The right ventricular systolic function is normal. Atria The left atrium size is normal. The right atrium size is normal. There is no Doppler evidence of interatrial shunt. Aortic Valve The aortic valve opens well. There is no aortic valvular stenosis. Trace aortic regurgitation. Mitral Valve The mitral valve is normal in structure. No evidence of mitral valve stenosis. Trace mitral regurgitation. Tricuspid Valve The tricuspid valve leaflets are thin and pliable. Trace tricuspid regurgitation. There is insufficient TR jet to estimate RVSP. Pulmonic Valve The pulmonary valve is normal in structure. Trace pulmonic regurgitation. Great Vessels The aortic root is normal in size. The ascending aorta is not well-visualized. IVC is normal in size and collapses >50% with inspiration. Pericardium There is no pericardial effusion. Other Information Study Quality: Fair Conclusion Normal biventricular systolic function. Mild RV dilation. No significant valvular stenosis or regurgitation. Electronically signed by : Harleen Katz MD 07/04/2023 21:36:27
[2023-06-30] MEDS: ISOTOPE MYOVIEW (PER STUDY) 1 DOSE IV (10:25)
--- NOTE | 2023-06-30 12:11 | CA_ITS ---
APPROVED REPORT Exam: Exercise Treadmill Technologist: Megan Gao, Ht: 6 ft 1 in Wt: 261 lbs BSA: 2.41 m2 HR: 78 bpm BP: 152/90 mmHg Rhythm: NSR Indications: Chest pain Medical History Medications: Amlodipine,,,,, Metformin,,,,, Atorvastatin,,,,, Carvedilol,,,,, Farxiga,,,,, OxYCODONE,,,,, LanTUS,,,,, Nitroglycerin,,,,, Pregabalin,,,,, Lisinopril HCTZ,,,,, Furosemide,,,,, Mounjaro,,,,, Stress Test Details Test: Jayden HR Resting HR: 97 bpm Max Heart Rate (APMHR): 171 bpm Max HR Achieved: 160 bpm Target HR (85% APMHR): 145 bpm % of APMHR: 94 Recovery HR: 101 bpm HR response to stress: Normal HR response to stress BP Resting BP: 152.0/90.0 mmHg Max BP: 231.0/115.0 mmHg Recovery BP: 161.0/107.0 mmHg BP response to stress: Abnormal hypotensive response to stress. ECG Resting ECG: NSR, normal Stress EC mm horizontal ST depression Arrhythmia: None Clinical Exercise duration: 10:00 min Highest Stage Achieved: IV Exercise capacity: 10.1 METs Overall Exercise Capacity for Age: Average Stress ECG Conclusion CheckThe patient was able to exercise for a total of 10 minutes, 0 seconds. He achieved a total of 10.1 METS. Test capacity compared to age and sex matched peers. He has normal HR, but exaggerated hypertensive BP, response to exercise. Max HR: 160 % of PM: 94% Max BP: 231/115 METs: 10.1 Test stopped due to: SOA, fatigue Symptoms: No CP. Arrhythmias/Ectopy: None ST-T Changes: Apprx 1mm horizontal ST depression Conclusion: EKG changes suggestive of ischemia. Myoview omages reported separately. Test Summary REST . . . . . . . Sitting REST . . . . . . . Standing REST 08:51 0.0 0.0 97 . 152/ 90 . . Stage 1 01:00 10.0 1.7 107 . . . . Stage 1 02:00 10.0 1.7 116 . . . . Stage 1 03:00 10.0 1.7 120 . 194/ 90 . . Stage 2 01:00 12.0 2.5 124 . . . . Stage 2 02:00 12.0 2.5 130 . . . . Stage 2 03:00 12.0 2.5 132 . 218/ 90 . . Stage 3 01:00 14.0 3.4 143 . . . . Stage 3 . . . . . . . Myoview Injected Stage 3 02:00 14.0 3.4 149 . . . . Stage 3 . . . . . . . Stage held Stage 3 03:00 14.0 3.4 158 . . . . Stage 3 . . . . . . . Stage resumed Stage 3 04:00 14.0 3.4 160 . . . Stop exercise at 10:00 RECOVERY 01:00 0.0 0.0 136 . . . . RECOVERY 02:00 0.0 0.0 115 . 231/115 . . RECOVERY 03:00 0.0 0.0 105 . 191/108 . . RECOVERY 04:00 0.0 0.0 100 . 191/108 . . RECOVERY 05:00 0.0 0.0 97 . 181/105 . . RECOVERY 06:00 0.0 0.0 101 . 181/105 . . RECOVERY 06:52 0.0 0.0 103 . 161/107 . . Electronically signed by : Harleen Katz MD 07/01/2023 12:03:07
== END 2023-06-30 23:59 | disposition home or self-care (01) ==
LOC: RAD 07:57
PROVIDERS: PCP Internal Medicine; Visit Provider Internal Medicine
DX: R07.9 Chest pain, unspecified (principal); E78.5 Hyperlipidemia, unspecified; I10 Essential (primary) hypertension; E11.9 Type 2 diabetes mellitus without complications; E66.9 Obesity, unspecified; Z68.34 Body mass index [BMI] 34.0-34.9, adult; Z79.4 Long term (current) use of insulin
CPT/HCPCS: 78452; 93017; 93018; 93306; A9502

== ENCOUNTER 2023-07-29 09:03 | Outpatient (CLI) | payer OTHER, SELFPAY ==
[2023-07-29] VITALS (9 sets, daily range): BP systolic 117–166; BP diastolic 73–104; PULSE 58–77; RESP 18; O2SAT 96–99; BMI 34.2
--- NOTE | 2023-07-29 09:07 | CT_ITS ---
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 A noncontrast coronary calcium scan was performed. A CT attenuation threshold of 130 Hounsfield units (HU) was used for the detection of calcium in contiguous voxels of 1 sq mm in area to be counted as individual lesions. Bolus tracking in the ascending aorta with a threshold of 180 HU was performed. Immediately afterwards, ECG synchronized cardiac CT was then performed from the cardiac base to apex using retrospective gating with ECG tube current modulation. A total of 85 mL of Isovue 370 mg/mL contrast medium was administered at 5 mL/sec followed by a saline flush using a biphasic injection protocol. A tube voltage of 120 KVp was used. The patient received the following medications prior to the cardiac CT. 150 mg of oral metoprolol 15 mg of intravenous metoprolol 15 mg of oral ivabradine 0.8 mg of sublingual nitroglycerin The average heart rate at the time of acquisition was 61 bpm and regular. Image Reconstruction Transaxial images were reconstructed at 0.67 mm slide thickness. Data was reviewed interactively on an advanced workstation capable of 2 and 3-dimensional displays in all conventional reconstruction formats, including multiplanar reformations, maximum intensity projections, curved multiplanar reformations, and volume rendered reconstructions. When applicable, selected routine images describing the relevant coronary anatomy and pathology were saved and sent to PACS. Complications None Technical Quality Overall image quality was good. Coronary artery opacification was adequate. Total DLP (Dose-Length Product) is 1428.7 mGy-cm. The reported value represents the total of one or more individual components during the CT acquisition of this date and at this time, and as such, the same value may appear in more than one CT report depending on the interpreting/reporting physicians. COMPARISON None FINDINGS CT Coronary Calcium Scoring LMA (Left Main Artery) = 39 LAD (Left Anterior Descending) = 44 LCX (Left Coronary Circumflex) = 18 RCA (Right Coronary Artery) = 0 Total Calcium Score = 101 using the AJ-130 method. The observed calcium score of 101 is at 90th percentile for subjects of the same age, sex, and race/ethnicity. The interpretation of the calcium heart score is based on the following continuum*: 0 = no calcified plaque detected (risk of coronary artery disease is very low ??? less than 5%) 1-10 = calcium detected in extremely minimal levels (risk of coronary diseases is still low ??? less than 10%) 11-100 = mild levels of plaque detected with certainty (mild or minimal narrowing of heart arteries is likely) 101-400 = definite,at least moderate levels of plaque detected (relatively high risk of a heart attack within 3-5 years) >401-999 = extensive levels of plaque detected (high risk of heart attack, high levels of vascular disease are present, high likelihood of at least one significant coronary narrowing) *The calcium heart score quantifies the burden of coronary calcification/plaque in the coronary arteries. The calcium heart score is not able to evaluate the presence or burden of non-calcified (i.e. soft) plaque. There is no identifiable calcification in the aortic valve, mitral annulus or mitral valve, pericardium, or myocardium. Coronary CT Angiography The coronary arterial system is right dominant. Quantitative Stenosis Grading: Left Main (LM): The left main originates normally from the left sinus of Valsalva. The LM bifurcates into the left anterior descending artery and left circumflex artery. There is calcified plaque in the proximal LM, but with no evidence of luminal stenosis. Left Anterior Descending (LAD) and Diagonal Branches: The LAD gives off 2 diagonal branch(es). There is mixed calcified/noncalcified plaque in the proximal and mid LAD, with up to 50-70% luminal stenosis in the proximal LAD segment. There is no evidence of LAD-myocardial bridge. Left Circumflex (LCX) and Obtuse Marginals (OM): The LCX gives off 1 Obtuse Marginal (OM) branch(es). There is calcified plaque in the proximal LCx and OM1, with up to 50-70% luminal stenosis in the OM1. Right Coronary Artery (RCA): The RCA originates normally from the right sinus of Valsalva. The RCA gives off a posterior descending artery (PDA) and posterolateral (PL) branches. The RCA and its branches are patent with no evidence of atherosclerosis. Non-Coronary Cardiac Findings: Analysis of the left ventricular (LV) structure and function was performed after 3-D reconstruction of the LV from axial images, with user-corrected automatic contouring for assessment of LV volumes and user-defined reconstruction from oblique planes for measurement of 3-D cardiac structure and function. -The left ventricle systolic function is normal. -There is no left atrial appendage filling defect. Two right pulmonary veins and two left pulmonary veins drain normally into the left atrium. -No pericardial thickening or calcification. -Central and branch pulmonary arteries in the [id number] are unremarkable. -Thoracic aorta within the visualized thoracic aortic-branches in the [id number] is unremarkable. Extracardiac Structures No significant extra-cardiac findings. Note, however, that this study is focused on the cardiac findings. IMPRESSION -Presence of coronary calcification with an Agatston score = 101 using the AJ-130 method. -The observed calcium score of 101 is at 90th percentile for subjects of the same age, sex, and race/ethnicity. -Presence of multivessel atherosclerotic coronary disease in the LAD and LCx/OM, with possible flow-limiting atherosclerosis of the proximal LAD and/or OM segments. -CAD-RADS 3. Management recommendations per ACC/AHA guidelines*, as clinically appropriate. *Recommendations: CAD RADS 0: Reassurance. Consider non-atherosclerotic causes of chest pain. CAD RADS 1: Consider non-atherosclerotic causes of chest pain. Consider preventive therapy and risk factor modification. CAD RADS 2: Consider non-atherosclerotic causes of chest pain. Consider preventive therapy and risk factor modification, particularly for patients with nonobstructive plaque in multiple segments. CAD RADS 3: Consider further functional testing. Consider symptom-guided anti-ischemic and preventive pharmacotherapy as well as risk factor modification per published guideline statements. CAD RADS 4A: Consider further functional testing or invasive coronary angiography with revascularization per published guideline statements. Consider symptom-guided anti-ischemic and preventive pharmacotherapy as well as risk factor modification per published guideline statements. CAD RADS 4B: Invasive coronary angiography recommended with revascularization per published guideline statements. Consider symptom-guided anti-ischemic and preventive pharmacotherapy as well as risk factor modification per published guideline statements. CAD RADS 5: Consider invasive angiography and/or viability assessment with revascularization per published guideline statements. Consider symptom-guided anti-ischemic and preventive pharmacotherapy as well as risk factor modification per published guideline statements. CRITICAL RESULT None COMMUNICATION Per this written report The coronary and cardiac findings of this CCTA were reviewed, reported, and signed by Alvaro Katz MD ([employer] Developer) Conclusion Electronically signed by : Harleen Katz MD 08/03/2023 14:57:02
[2023-07-29 09:52] LABS: Chloride 101 mmol/L (98-107); Potassium 4.4 mmoL/L (3.5-5.1); Sodium 138 mmol/L (136-145)
[2023-07-29 09:55] LABS: Anion Gap 11.4 mEq/L (5-15); Blood Urea Nitrogen 10 mg/dl (9-20); Calcium 9.4 mg/dl (8.4-10.2); Carbon Dioxide 30 mmol/L (22.0-30.0); Creatinine Clearance Estimated 166 mL/min (50-200); Estimated Glomerular Filt Rate 90 ml/min (>60); GFR (African American) 109 ML/MIN (>60); Glucose 134 mg/dl (74-100)
[2023-07-29] MEDS: METOPROLOL TARTRATE 50MG TABLET PO ×2 (10:04→10:51)
[2023-07-29] MEDS: IVABRADINE HCL 7.5MG TABLET PO (10:04)
[2023-07-29] MEDS: METOPROLOL TARTRATE 25MG TABLET 25 MG ×2 (10:05→10:51)
--- NOTE | 2023-07-29 11:44 | PC.NURSE ---
Pt HR is still in upper 60's after PO doses of Ivabradine and Metoprolol. VSS, pt c/o BARTLETT.
[2023-07-29] MEDS: METOPROLOL TARTRATE 5MG/5ML VIAL 5 MG IV ×3 (11:51→12:17)
[2023-07-29] MEDS: NITROGLYCERIN 0.4MG SL TABLET SL (12:05)
[2023-07-29] MEDS: 0.9 % SODIUM CHLORIDE 50 ML VIAL IV ×2 (12:16→12:29)
[2023-07-29] MEDS: SODIUM CHLORIDE 0.9% 10ML SYR (RAD ONLY) 10 ML IV ×2 (12:16→12:29)
[2023-07-29] MEDS: IOPAMIDOL-370 (76%);100ML BOTTLE 85 ML IV ×2 (12:16→12:29)
--- NOTE | 2023-07-29 13:01 | PC.NURSE ---
1205- arrived to ct suite, bp 166/104. Nitro 0.8mg SL given per protocol. 1208-HR 86 Metoprolol 5mg IV given per protocol, bp 145/89 1217-117/81, HR 65 Metorpolol 5mg IV given per protocol. 1220 CTA complete 1225- return to post-op for recovery, VSS 1300- Pt discharged with no C/O. VSS. Instructed to drink lots of water today and return to ER if experience extreme dizziness that doesn't go away for fainting, verbalized understanding.
== END 2023-07-29 23:59 | disposition home or self-care (01) ==
PROVIDERS: PCP Internal Medicine; Visit Provider Internal Medicine
DX: R93.1 Abnormal findings on diagnostic imaging of heart and coronary circulation (principal); Z87.891 Personal history of nicotine dependence; E78.5 Hyperlipidemia, unspecified; E66.9 Obesity, unspecified; Z68.34 Body mass index [BMI] 34.0-34.9, adult; I10 Essential (primary) hypertension; E11.9 Type 2 diabetes mellitus without complications; Z79.84 Long term (current) use of oral hypoglycemic drugs; Z79.85 Long-term (current) use of injectable non-insulin antidiabetic drugs; Z79.4 Long term (current) use of insulin
CPT/HCPCS: 75574; 80048; Q9967

== ENCOUNTER 2023-08-19 08:27 | Day surgery (SDC) | payer OTHER, SELFPAY ==
[2023-08-19] VITALS (11 sets, daily range): BP systolic 123–186; BP diastolic 73–110; PULSE 51–96; RESP 16–20; TEMP 36.6; O2SAT 92–100; BMI 34.0
--- NOTE | 2023-08-19 07:16 | IR_ITS ---
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 COMPLICATIONS NONE Estimated Blood Loss: LESS THAN 10 ML TECHNIQUE One percent lidocaine used to anesthetize the right anterior aspect of the wrist. The right radial artery was accessed via the Seldinger technique. A 6 Spanish sheath was placed in the right radial artery. 2.5 mg of Verapamil, 800 mcg of nitroglycerin, 1mg Lidocaine and 5000 U Heparin were given through the arterial sheath. The papa catheter was also used to perform left heart catheterization, left ventriculogram and selective coronary angiogram. At the end the diagnostic angiogram therapeutic heparin was administered giving a therapeutic ACT and the guide catheter was placed in left main artery followed by Choice PT to support wire down the LAD. A 4 mm x 18 mm Demorest frontier stent was deployed at 15 [place]istan reducing the severe stenosis to 0%. NOAH-3 flow was present before and after the procedure. At the end of the procedure the apparatus was removed the sheath was removed and hemostasis was achieved using TR banding patient was transferred to postop holding in stable condition ANGIOGRAPHIC RESULTS The left main artery Normal The left anterior descending artery Has a proximal concentric 70% stenosis with mid vessel 30% stenoses. The LAD is large and wraps the apex The circumflex artery Large nondominant with 10% luminal regularities The right coronary artery Dominant with proximal concentric 40% stenosis mid vessel 20% stenosis and a distal 30% long stenosis The MEDINA ventriculogram reveals Hyperdynamic 75% The left ventricular end-diastolic pressure 15 mmHg IMPRESSION Severe proximal LAD disease Successful stent to the proximal ID severe disease reduced to 0% with 1 drug-eluting stent Persistent moderate disease throughout as described above Hyperdynamic ventricle Borderline LVEDP PLAN 1. Effient plus aspirin 2. LDL less than 55 to be achieved with high intensity statin 3. Avoidance of tobacco products 4. Risk factor modification 5. Cardiac rehabilitation Electronically signed by : Jose Camacho MD 08/19/2023 11:55:25
[2023-08-19 08:59] LABS: Basophils # 0.1 K/mm3 (0-0.2); Basophils % 0.8 % (0.1-2.0); Eosinophils # 0.2 K/mm3 (0.0-0.4); Hematocrit 40.5 % (42.0-52.0); Hemoglobin 14.5 g/dL (14.1-18.0); Lymphocytes % 28.4 % (10-50); Mean Corpuscular HGB Conc 35.8 g/dL (31.8-35.4); Mean Corpuscular Hemoglobin 32.8 pg (27.0-31.2); Mean Corpuscular Volume 91.7 fl (80-94); Mean Platelet Volume 6.3 fl (7.4-10.4); Monocytes # 0.4 K/mm3 (0.1-1.0); Monocytes % 5.7 % (1.7-9.3); Neutrophils # 4.3 K/mm3 (1.8-7.8); Platelet Count 242 K/mm3 (142-424); Red Blood Count 4.42 M/mm3 (4.60-6.20); Red Cell Distribution Width 13.4 % (11.5-17.5); White Blood Count 6.9 K/mm3 (4.8-10.8)
[2023-08-19 09:03] LABS: Chloride 99 mmol/L (98-107)
[2023-08-19 09:04] LABS: Potassium 4.1 mmoL/L (3.5-5.1); Sodium 137 mmol/L (136-145)
[2023-08-19 09:07] LABS: Anion Gap 12.1 mEq/L (5-15); Blood Urea Nitrogen 14 mg/dl (9-20); Calcium 9.5 mg/dl (8.4-10.2); Carbon Dioxide 30 mmol/L (22.0-30.0); Creatinine Clearance Estimated 164 mL/min (50-200); Estimated Glomerular Filt Rate 90 ml/min (>60); GFR (African American) 109 ML/MIN (>60); Glucose 140 mg/dl (74-100)
[2023-08-19] MEDS: HEPARIN 1,000 UNITS/ML 10ML VIAL (CATH LAB) 10000 UNIT IV ×2 (11:22→11:47)
[2023-08-19] MEDS: HEPARIN 1,000 UNITS/500ML NS (CATH LAB) 3000 UNIT IV (11:22)
[2023-08-19] MEDS: LIDOCAINE 1% 10ML MDV 20 ML IJ (11:22)
[2023-08-19] MEDS: 0.9 % SODIUM CHLORIDE 500 ML 25 ML IV (11:22)
[2023-08-19] MEDS: VERAPAMIL 2.5MG/ML 2ML VIAL 2.5 MG IV (11:23)
[2023-08-19] MEDS: NITROGLYCERIN 800MCG/8ML SYR (CATH LAB) 800 MCG IA (11:23)
[2023-08-19] MEDS: diphenhydrAMINE 50MG/ML VIAL 50 MG IV (11:23)
[2023-08-19] MEDS: FENTANYL 100MCG/2ML VIAL 50 MCG IV (11:41)
[2023-08-19] MEDS: MIDAZOLAM HCL 1MG/1ML 5ML VIAL 1 MG IV (11:41)
[2023-08-19] MEDS: IOPAMIDOL-370 (76%);100ML BOTTLE 110 ML IV (12:18)
[2023-08-19 12:19] LABS: CATHL Activated Clotting Time 303 SEC (74-125)
== END 2023-08-19 15:12 | disposition home or self-care (01) ==
LOC: CATHLAB 08:28
PROVIDERS: PCP Internal Medicine; Visit Provider Internal Medicine
DX: R93.1 Abnormal findings on diagnostic imaging of heart and coronary circulation (principal); Z87.891 Personal history of nicotine dependence; E66.9 Obesity, unspecified; I10 Essential (primary) hypertension; E11.9 Type 2 diabetes mellitus without complications; R07.9 Chest pain, unspecified; E78.5 Hyperlipidemia, unspecified; Z68.34 Body mass index [BMI] 34.0-34.9, adult; I25.10 Atherosclerotic heart disease of native coronary artery without angina pectoris; Z79.899 Other long term (current) drug therapy; Z79.84 Long term (current) use of oral hypoglycemic drugs
CPT/HCPCS: 80048; 85025; 85347; 92928; 93458; 99152; C1725; C1760; C1769; C1874; C9600; J1644; J2250; J3010; Q9967

== ENCOUNTER 2023-08-23 12:37 | Outpatient (CLI) | payer OTHER, SELFPAY ==
[2023-08-23 13:11] LABS: Basophils % 0.5 % (0.1-2.0); Eosinophils # 0.1 K/mm3 (0.0-0.4); Eosinophils % 1.6 % (0.1-12.0); Hematocrit 33.9 % (42.0-52.0); Hemoglobin 13.4 g/dL (14.1-18.0); Lymphocytes # 1.6 K/mm3 (0.7-4.5); Lymphocytes % 23.7 % (10-50); Mean Corpuscular HGB Conc 39.6 g/dL (31.8-35.4); Mean Corpuscular Hemoglobin 37.7 pg (27.0-31.2); Mean Corpuscular Volume 95.1 fl (80-94); Monocytes # 0.4 K/mm3 (0.1-1.0); Monocytes % 6.8 % (1.7-9.3); Neutrophils # 4.4 K/mm3 (1.8-7.8); Neutrophils % 67.5 % (37.0-80.0); Platelet Count 197 K/mm3 (142-424); Red Blood Count 3.57 M/mm3 (4.60-6.20); Red Cell Distribution Width 13.9 % (11.5-17.5); White Blood Count 6.5 K/mm3 (4.8-10.8)
[2023-08-23 14:10] LABS: Anion Gap 12.6 mEq/L (5-15); Blood Urea Nitrogen 15 mg/dl (9-20); Calcium 9.6 mg/dl (8.4-10.2); Carbon Dioxide 32 mmol/L (22.0-30.0); Chloride 97 mmol/L (98-107); Estimated Glomerular Filt Rate 90 ml/min (>60); GFR (African American) 109 ML/MIN (>60); Glucose 126 mg/dl (74-100); Hemoglobin A1C 6.7 % (4.0-6.0); Potassium 4.6 mmoL/L (3.5-5.1); Sodium 137 mmol/L (136-145)
[2023-08-23 14:25] LABS: 25-OH Vitamin D, Total 19.3 ng/mL (30-100)
[2023-08-23 14:43] LABS: Thyroid Stimulating Hormone 1.12 uIU/mL (0.465-4.68)
[2023-08-23 15:02] LABS: Vitamin B12 336 pg/mL (239-931)
== END 2023-08-23 23:59 | disposition home or self-care (01) ==
LOC: LAB 12:38
PROVIDERS: Internal Medicine; PCP Internal Medicine; Visit Provider Internal Medicine
DX: E11.69 Type 2 diabetes mellitus with other specified complication (principal); E66.9 Obesity, unspecified; I25.10 Atherosclerotic heart disease of native coronary artery without angina pectoris
CPT/HCPCS: 36415; 80048; 82306; 82607; 83036; 84443; 85025

== ENCOUNTER 2023-11-22 11:08 | Outpatient (CLI) | payer OTHER, SELFPAY ==
[2023-11-22 19:19] LABS: Chol/HDL Ratio 3.6 (1-3.5); Cholesterol 140 mg/dl (140-200); HDL Cholesterol 39 mg/dl (40-60); Triglycerides 139 mg/dl (30-150); VLDL Cholesterol 28 mg/dL (0-40)
[2023-11-22 19:31] LABS: Direct LDL Cholesterol 67.52 mg/dL (100-129)
[2023-11-22 20:51] LABS: Creatinine,Urine Random 115 mg/dL (Not Estab.)
== END 2023-11-22 23:59 | disposition home or self-care (01) ==
LOC: LAB.DROPOF 11-23 11:08
PROVIDERS: PCP Internal Medicine; Visit Provider Internal Medicine
DX: R73.03 Prediabetes (principal); E78.5 Hyperlipidemia, unspecified
CPT/HCPCS: 80061; 82043; 82570

== ENCOUNTER 2024-02-10 15:30 | Outpatient (CLI) | payer OTHER, SELFPAY ==
[2024-02-10 20:37] LABS: Microalbumin/Creatinine Ratio 23.1
[2024-02-10 20:39] LABS: Creatinine,Urine Random 51 mg/dL (Not Estab.)
== END 2024-02-10 23:59 | disposition home or self-care (01) ==
LOC: LAB.DROPOF 02-11 10:11
PROVIDERS: PCP Internal Medicine; Visit Provider Internal Medicine
DX: E11.9 Type 2 diabetes mellitus without complications (principal)
CPT/HCPCS: 82043; 82570

== ENCOUNTER 2024-02-14 18:59 | Emergency (ER) | payer OTHER, SELFPAY ==
[2024-02-14 18:59] VITALS: BP 163/102; PULSE 74; RESP 16; TEMP 37.1; O2SAT 96; BMI 36.2
--- NOTE | 2024-02-14 19:00 | ECG_ITS ---
APPROVED REPORT Exam: Resting ECG HR:74 bpm ECG Measurements Heart Rate 74 AXES NJ 178 P 51 QRSd 105 QRS 62 QT 388 T 37 QTc 415 Conclusion SINUS RHYTHM NORMAL ECG Electronically signed by : COREY CALVERT, 02/15/2024 00:38:56
--- NOTE | 2024-02-14 19:12 | XR_ITS ---
PROCEDURE INFORMATION: Exam: XR Chest Exam date and time: 02/14/2024 7:11 PM Age: 48 years old Clinical indication: Pain; Chest pressure; Additional info: Chest pain, cad, 1 stent TECHNIQUE: Imaging protocol: Radiologic exam of the chest. Views: 2 views. COMPARISON: CT ANGIO CHEST 12/26/2021 9:35 AM FINDINGS: Lungs: Flattening of the hemidiaphragms and increase in the AP diameter of the chest suggest COPD. Trace linear markings in the left lower lobe are stable consistent with minor parenchymal scarring. The lungs appear otherwise clear. No focal areas of consolidation. Pleural spaces: No pleural effusions. Negative for pneumothorax. Heart/Mediastinum: Cardiac silhouette and pulmonary vasculature are within range of normal. Bones/joints: There is no evidence of acute fracture. The thoracic spine demonstrates mild degenerative changes at multiple levels. IMPRESSION: 1. Negative for an acute cardiopulmonary abnormality. 2. Flattening of the hemidiaphragms and increase in the AP diameter of the chest suggest COPD.
[2024-02-14 19:14] VITALS: PULSE 74
--- NOTE | 2024-02-14 19:22 | ED_ITS ---
Discharge Plan Disposition Patient Disposition: Home, Self-Care Condition: Good Prescriptions Prescriptions: New pantoprazole 40 mg tablet,delayed release (DR/EC) 40 mg PO DAILY Qty: 30 0RF No Action atorvastatin 80 mg tablet 80 mg PO DAILY Qty: 90 4RF carvedilol 6.25 mg tablet 3.125 mg PO BID 90 Days Qty: 90 3RF cholecalciferol (vitamin D3) 250 mcg (10,000 unit) capsule 250 mcg PO DAILY 90 Days Qty: 90 4RF dapagliflozin propanediol [Farxiga] 10 mg tablet 10 mg PO DAILY Qty: 90 3RF prasugrel [Effient] 10 mg tablet 10 mg PO DAILY 90 Days Qty: 90 4RF oxycodone 10 mg tablet 10 mg PO TID PRN (Reason: pain) 30 Days Qty: 90 0RF oxycodone 10 mg tablet 10 mg PO TID PRN (Reason: pain) Qty: 90 0RF pregabalin 150 mg capsule 150 mg PO BID 90 Days Qty: 180 2RF insulin glargine [Lantus Solostar U-100 Insulin] 100 unit/mL (3 mL) insulin pen 17 unit SQ HS Qty: 15 5RF nitroglycerin [Nitrostat] 0.4 mg tablet, sublingual 0.4 mg sublingual Q5M PRN (Reason: chest pain) Qty: 20 0RF Rx Instructions: do not exceed 3 doses per episode lisinopril 20 mg tablet 10 mg PO DAILY Qty: 90 3RF (DME) FreeStyle Susanna 3 Sensor Device See Rx Instructions .Route Qty: 1 0RF Rx Instructions: As directed (DME) FreeStyle Susanna 2 [place] Misc See Rx Instructions .Route Qty: 1 0RF Rx Instructions: As directed metformin 500 mg tablet See Rx Instructions .ROUTE .COMPLEX Qty: 360 0RF Dose Instruction: TAKE TWO TABLETS BY MOUTH TWICE DAILY Rx Instructions: TAKE TWO TABLETS BY MOUTH TWICE DAILY (DME) FreeStyle Susanna 2 Sensor Kit See Rx Instructions .ROUTE .COMPLEX Qty: 1 0RF Dose Instruction: USE DIRECTED Rx Instructions: USE DIRECTED Mounjaro 5 mg/0.5 mL pen injector See Rx Instructions .ROUTE .COMPLEX Qty: 2 5RF Dose Instruction: INJECT THE CONTENTS OF 1 PEN (5 MG / 0.5ML) SUBCUTANEOUSLY ONCE A WEEK Rx Instructions: INJECT THE CONTENTS OF 1 PEN (5 MG / 0.5ML) SUBCUTANEOUSLY ONCE A WEEK aspirin 81 mg Tablet,Chewable 81 mg PO DAILY Qty: 30 6RF Referrals Follow up/Referrals: Provider,Referral, [Primary Care Provider] - See instructions Activity Restrictions/Add. Instructions Additional Instructions/Restrictions: You were evaluated in the emergency department today for chest pain. At this time, workup is reassuring. Please follow-up closely with your primary care provider as well as with your maintenance mechanic helper over the next week. occupational therapy department chair your prescription and take daily as prescribed. Return to the emergency department for new or worsening symptoms. Clinical Impressions Clinical Impression: Chest pain Stand Alone Forms Stand Alone Forms: Work/School Release Instructions Patient Instructions: DI for Atypical Chest Pain Print Language Print Language: [place] Discharge ED Provider: Vanessa Landry HPI General Chief Complaint: Chest Pain Stated Complaint: chest pain Time Seen by Provider: 02/14/24 19:01 Mode of Arrival: Ambulatory Source of Information: Patient Limitations: No Limitations Description of Symptoms (Recalled from ER Triage Doc. by RN): pt to the ED with left medial chest pain x 3 days. pt reports its a sharp pain that worsened tonight. pt recently stented about 4 months ago History of Present Illness HPI narrative: This patient is a 48-year-old male with a history of CAD status post stenting, prior smoking history, type 2 diabetes, hypertension, hyperlipidemia presenting to the emergency department for evaluation with concern for chest pain. Patient states that he is had intermittent left-sided chest pain for the last 3 days. Nothing seems to bring it on. It is nonradiating. He states that sometimes it goes away after he burps, so he thought it may be indigestion, but today the pain was really severe prompting evaluation. Pain resolved just prior to arrival. He does note that he had some right leg swelling and pain, but he has not had any significant injury of his right leg. No history of blood clots or clotting disorders, and he does report compliance with his home medications. No other concerns such as fevers, cough, congestion, nausea, vomiting, abdominal pain, or other issues. Related Data Previous Rx's ?Medication ?Instructions ?Recorded blood-glucose sensor (FreeStyle #1 ea 08/28/22 Susanna 3 Sensor device) flash glucose scanning reader #1 ea 08/28/22 (FreeStyle Susanna 2 [place]) metformin 500 mg tablet See Rx Instructions .Route 04/14/23 .COMPLEX #360 tabs insulin glargine 100 unit/mL (3 17 unit (0.17 mL) SQ HS DM #15 mL 04/22/23 mL) subcutaneous pen (Lantus Solostar U-100 Insulin) nitroglycerin 0.4 mg sublingual 0.4 mg sublingual Q5M PRN chest 06/28/23 tablet (Nitrostat) pain #20 tabs aspirin 81 mg chewable tablet 81 mg PO DAILY #30 tabs 08/19/23 flash glucose sensor (FreeStyle #1 kit 09/20/23 Susanna 2 Sensor kit) lisinopril 20 mg tablet 10 mg (1/2 x 20 mg) PO DAILY #90 10/05/23 tabs atorvastatin 80 mg tablet 80 mg PO DAILY #90 tabs 11/22/23 carvedilol 6.25 mg tablet 3.125 mg (1/2 x 6.25 mg) PO BID 90 11/22/23 days #90 tabs cholecalciferol (vitamin D3) 250 250 mcg PO DAILY 90 days #90 caps 11/22/23 mcg (10,000 unit) capsule dapagliflozin propanediol 10 mg 10 mg PO DAILY #90 tabs 11/22/23 tablet (Farxiga) prasugrel 10 mg tablet (Effient) 10 mg PO DAILY 90 days #90 tabs 11/22/23 tirzepatide 5 mg/0.5 mL See Rx Instructions .Route 12/30/23 subcutaneous pen injector .COMPLEX #2 mL (Mounjaro) oxycodone 10 mg tablet 10 mg PO TID PRN pain #90 tabs 02/10/24 oxycodone 10 mg tablet 10 mg PO TID PRN pain 30 days #90 02/10/24 tabs pregabalin 150 mg capsule 150 mg PO BID 90 days #180 caps 02/10/24 pantoprazole 40 mg tablet,delayed 40 mg PO DAILY #30 tabs 02/14/24 release Allergies Allergy/AdvReac Type Severity Reaction Status Date / Time Penicillins (PENICILLINS) Allergy Unknown Verified 02/10/24 09:47 semaglutide AdvReac Severe Vomiting Verified 02/10/24 09:47 [facility] Disclaimer: The information contained in this section may have been updated after the patient was seen, as this information can be updated by other users. Medical History Hypotension Hx of small bowel obstruction Foot pain, bilateral Chest pain HLD (hyperlipidemia) Surgical History Status post insertion of drug-eluting stent into left anterior descending (LAD) artery for coronary artery disease S/P cardiac cath History of bowel resection Family History Other Family history of acute congestive heart failure Social History Smoking Status: Never smoker alcohol intake: never substance use type: denies use current occupational status: other Travel in the last 8 weeks: Inside the [place] household members: other housing: other Have you lived/traveled outside US in past 30 days?: No Contact w/someone who lives/traveled outside US past 30 days?: No Exposure to someone with infectious disease in past 14 days?: No Do you have a fever (greater than 100.4 F or 38 C)?: No Have you tested positive for COVID-19: No Exposed to someone with COVID-19 in past 14 days?: No Do you have a sore throat?: No Do you have a cough?: No Do you have any weakness?: No Do you have any diarrhea?: No Are you experiencing any unusual bleeding?: No Do you have any muscle aches/pain?: No Do you have any abdominal pain?: No Are you experiencing loss of taste or smell?: No Other Medical History Have you received the Flu Vaccine for this season: No Have you received the Pneumonia Vaccine: No ROS Obtained: Yes All systems reviewed & no additional complaints except as documented Physical Exam General General appearance: alert, in no apparent distress and obese Head Head exam: atraumatic and normocephalic Eye Eye exam: Present normal appearance, PERRL and EOMI ENT ENT exam: Present normal exam, normal oropharynx, mucous membranes moist and normal external ear exam Neck Neck exam: Present normal inspection, full ROM and trachea midline; Absent tenderness Chest Chest inspection: Present normal inspection and symmetric chest wall rise; Absent tenderness Respiratory Respiratory exam: Present normal lung sounds bilaterally; Absent respiratory distress, wheezes, stridor or accessory muscle use Cardiovascular Cardiovascular exam: Present regular rate and normal rhythm Abdominal Exam Abdominal exam: Present soft; Absent distention, tenderness or guarding Extremities Exam Extremities exam: Present full ROM, normal capillary refill and edema (Right leg swelling. Neurovascularly intact); Absent tenderness Back Exam Back exam: Present normal inspection and full ROM; Absent tenderness Neurological Exam Neurological exam: Present alert, oriented X3, CN II-XII intact and normal gait; Absent motor sensory deficit Psychiatric Psychiatric exam: Present normal affect and normal mood Skin Skin exam: Present warm and dry HEART Score HEART Score HEART Score assessment performed?: Yes History (anamnesis): Slightly suspicious ECG: Normal Age: 45-65 years Risk factors: Atherosclerosis history Troponin: </= normal limit HEART Score: 3 Critical Care Critical Care Time Critical Care Time: No Medical Decision Making Lance Inquiry Pt receiving controlled substance: No Vital Signs Vital Signs: 02/14/24 18:59 02/14/24 19:14 02/14/24 20:50 Temperature 98.7 F 98.7 F Temperature Source Oral Oral Pulse Rate 74 77 Pulse Rate [Left Radial] 74 Respiratory Rate 16 18 Blood Pressure 158/98 H Blood Pressure [Right Arm] 163/102 H Blood Pressure Mean [Right Arm] 122 Blood Pressure Source [Right Arm] Automatic Cuff Blood Pressure Position [Right Arm] Sitting 02 Sat by Pulse Oximetry 96 Oxygen Delivery Method Room Air Room Air Lab Data Labs: Lab Results 02/14/24 19:08: WBC 6.4, RBC 4.66, Hgb 14.4, Hct 41.3 L, MCV 88.6, MCH 30.9, MCHC 34.9, RDW 12.0, Plt Count 191, MPV 9.4, Neut % (Auto) 60.0, Lymph % (Auto) 26.9, [place] % (Auto) 10.0 H, Eos % (Auto) 2.3, Baso % (Auto) 0.5, Neut # (Auto) 3.8, Lymph # (Auto) 1.7, [place] # (Auto) 0.6, Eos # (Auto) 0.2, Baso # (Auto) 0.0, D-Dimer 0.47, Sodium 137, Potassium 4.2, Chloride 99, Carbon Dioxide 34 H, Anion Gap 8.2, BUN 16, Creatinine 0.90, Estimated Creat Clear 168, Estimated GFR 89, Est GFR ( Amer) 108, Glucose 142 H, Calcium 9.5, Total Bilirubin 0.6, AST 33, ALT 38, Alkaline Phosphatase 77, Troponin I < 0.01, NT-Pro-B Natriuret Pep 113, Total Protein 7.2, Albumin 4.5, Globulin 2.7, Albumin/Globulin Ratio 1.7, Lipase 31, HIV Ag/Ab Combo Qual Negative 02/14/24 19:08 02/14/24 19:08 Response Orders (Tests/Meds): ED MEDICATIONS Discontinued Medications Generic Name Dose Route Start Last Admin Trade Name Freq PRN Reason Stop Dose Admin Acetaminophen 1,000 mg 02/14/24 19:12 02/14/24 19:27 Acetaminophen 500mg Tab PO 02/14/24 19:13 1,000 mg ONCE ONE Administration Aspirin 324 mg 02/14/24 19:12 02/14/24 19:27 Aspirin 81mg Chewable Tablet PO 02/14/24 19:13 324 mg ONCE ONE Administration Belladonna Alkaloids 60 ml 02/14/24 19:12 02/14/24 19:28 Belladonna Alkaloids 60 Ml Ml PO 02/14/24 19:13 60 ml ONCE ONE Administration ORDERS Category Date Time Status CXR 2 view (NOT portable) [XR chest 2V] Stat Exams 02/14/24 19:12 Completed BNP [NT Pro Brain Natriuretic Pep.] Stat Lab 02/14/24 19:08 Completed Complete Blood Count Auto Diff Stat Lab 02/14/24 19:08 Completed Comprehensive Metabolic Panel Stat Lab 02/14/24 19:08 Completed D-Dimer Stat Lab 02/14/24 19:08 Completed HIV Combo Stat Lab 02/14/24 19:08 Completed Hep C Ab with Reflex to RNA Stat Lab 02/14/24 19:08 Received Lipase Stat Lab 02/14/24 19:08 Completed Trop I [Troponin I] Stat Lab 02/14/24 19:08 Completed ECG Data Tracing #1: Attestation: I reviewed this ECG and interpreted as documented below: ECG Narrative: Some motion artifact degrades study. Normal sinus rhythm with no acute STEMI noted. Normal axis and intervals. ECG initial impression date: 02/14/24 ECG initial impression time: 19:03 MDM Narrative Medical Decision Narrative: In summary, this patient is a 48-year-old male presenting to the Emergency Department for evaluation of intermittent chest pain for 3 days. Differential diagnoses considered include but are not limited to ACS, dysrhythmia, GERD, PE, costochondritis, pneumonia. Ruling out the most morbid conditions drove assessment. It should be noted patient's history includes hypertension, hyperlipidemia, diabetes, and CAD which reportedly are at goal therapy. This complicates all aspects of care by increasing patient's risk for morbidity. I reviewed patient's past medical records and noted recent cardiac stenting in July 2023 as well as most recent cardiology outpatient evaluation 11/22/2023 where patient has been compliant with meds and was overall feeling better. On exam, the patient is lying in bed in no acute distress. He is hypertensive but otherwise vitals are reassuring with no tachycardia or hypoxia. He is not currently having pain, as it resolved just prior to arrival. He does have some right leg swelling but no history of clots or clotting disorder. Workup included CBC, CMP, lipase, troponin, BNP, D-dimer, chest x-ray, EKG. EKG obtained demonstrates no STEMI. Patient was given oral aspirin as well as GI cocktail and Tylenol to assess for symptomatic improvement. I independently interpreted x-ray prior to the radiologist read and noted no acute focal consolidation or pneumothorax. Please see their read for final interpretation. Labs were obtained that demonstrated reassuring CBC and chemistry. Troponin negative. D-dimer negative. BNP not elevated.. On reassessment, patient continues to be asymptomatic with normal vital signs on cardiac telemetry. He notes he is concerned he could be indigestion with the frequent burping, and has not had recurrence of symptoms after the GI cocktail. Given this, we will discharge with a PPI. I considered keeping him and obtaining a second troponin, however given his symptoms been going on for days after shared decision-making with the patient he would rather try to go home. Given this, we will discharge the patient with plans for close follow-up with cardiology and primary care. Strict return precautions were given and he was discharged after all questions were answered.
[2024-02-14] MEDS: ASPIRIN 81MG CHEWABLE TABLET 324 MG PO (19:27)
[2024-02-14] MEDS: ACETAMINOPHEN 500MG TAB 1000 MG PO (19:27)
[2024-02-14] MEDS: BELLADONNA ALKALOIDS 60 ML ML PO (19:28)
[2024-02-14 19:37] LABS: Alanine Aminotransferase 38 U/L (12-78); Albumin Level 4.5 g/dl (3.5-5.0); Albumin/Globulin Ratio 1.7 (1.1-1.8); Alkaline Phosphatase 77 U/L (38-126); Anion Gap 8.2 mEq/L (5-15); Aspartate Amino Transferase 33 U/L (17-59); Bilirubin,Total 0.6 mg/dl (0.2-1.3); Blood Urea Nitrogen 16 mg/dl (9-20); Calcium 9.5 mg/dl (8.4-10.2); Carbon Dioxide 34 mmol/L (22.0-30.0); Chloride 99 mmol/L (98-107); Creatinine Clearance Estimated 168 mL/min (50-200); Estimated Glomerular Filt Rate 89 ml/min (>60); GFR (African American) 108 ML/MIN (>60); Globulin 2.7 g/dL (1.3-3.2); Glucose 142 mg/dl (74-100); Lipase 31 U/L (23-300); Potassium 4.2 mmoL/L (3.5-5.1); Sodium 137 mmol/L (136-145); Total Protein,Serum 7.2 g/dl (6.3-8.2)
[2024-02-14 19:41] LABS: Basophils % 0.5 % (0.1-2.0); Eosinophils # 0.2 K/mm3 (0.0-0.4); Eosinophils % 2.3 % (0.1-12.0); Hematocrit 41.3 % (42.0-52.0); Hemoglobin 14.4 g/dL (14.1-18.0); Lymphocytes # 1.7 K/mm3 (0.7-4.5); Lymphocytes % 26.9 % (10-50); Mean Corpuscular HGB Conc 34.9 g/dL (31.8-35.4); Mean Corpuscular Hemoglobin 30.9 pg (27.0-31.2); Mean Corpuscular Volume 88.6 fl (80-94); Mean Platelet Volume 9.4 fl (7.4-10.4); Monocytes # 0.6 K/mm3 (0.1-1.0); Neutrophils # 3.8 K/mm3 (1.8-7.8); Platelet Count 191 K/mm3 (142-424); Red Blood Count 4.66 M/mm3 (4.60-6.20); White Blood Count 6.4 K/mm3 (4.8-10.8)
[2024-02-14 19:42] LABS: D-Dimer 0.47 ug/mL (0.0-0.5)
[2024-02-14 19:48] LABS: NT Pro Brain Natriuretic Pep. 113 pg/mL (0-125)
[2024-02-14 19:55] LABS: Troponin I < 0.01 ng/ml (0.00-0.034)
[2024-02-14 20:33] LABS: HIV Combo NEGATIVE (Negative)
[2024-02-14 20:50] VITALS: BP 158/98; PULSE 77; RESP 18; TEMP 37.1; O2SAT 99
[2024-02-16 03:49] LABS: HCV Ab Non Reactive (Non Reactive)
== END 2024-02-14 20:51 | disposition home or self-care (01) ==
PROVIDERS: Emergency Provider Emergency Medicine
DX: R07.9 Chest pain, unspecified (principal)
CPT/HCPCS: 71046; 80053; 83690; 83880; 84484; 85025; 85378; 86803; 87389; 93005; 99284

== ENCOUNTER 2024-05-18 14:52 | Outpatient (CLI) | payer OTHER, SELFPAY ==
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
[2024-05-18 20:48] LABS: Alanine Aminotransferase 36 U/L (12-78); Albumin Level 4.9 g/dl (3.5-5.0); Albumin/Globulin Ratio 2.1 (1.1-1.8); Alkaline Phosphatase 61 U/L (38-126); Anion Gap 9.9 mEq/L (5-15); Aspartate Amino Transferase 26 U/L (17-59); Bilirubin,Total 0.7 mg/dl (0.2-1.3); Blood Urea Nitrogen 17 mg/dl (9-20); Calcium 9.8 mg/dl (8.4-10.2); Carbon Dioxide 27 mmol/L (22.0-30.0); Chloride 100 mmol/L (98-107); Chol/HDL Ratio 4.2 (1-3.5); Cholesterol 173 mg/dl (140-200); Estimated Glomerular Filt Rate 102 ml/min (>60); GFR (African American) 124 ML/MIN (>60); Globulin 2.3 g/dL (1.3-3.2); Glucose 152 mg/dl (74-100); HDL Cholesterol 41 mg/dl (40-60); Potassium 4.9 mmoL/L (3.5-5.1); Sodium 132 mmol/L (136-145); Total Protein,Serum 7.2 g/dl (6.3-8.2); Triglycerides 181 mg/dl (30-150); VLDL Cholesterol 36 mg/dL (0-40)
[2024-05-18 21:03] LABS: Direct LDL Cholesterol 76.66 mg/dL (100-129)
[2024-05-18 22:53] LABS: Creatinine,Urine Random 187 mg/dL (Not Estab.); Microalbumin/Creatinine Ratio 36.6
== END 2024-05-18 23:59 | disposition home or self-care (01) ==
LOC: RT 14:52
PROVIDERS: PCP Family Medicine; Visit Provider Family Medicine
DX: M25.561 Pain in right knee (principal); M79.89 Other specified soft tissue disorders; I10 Essential (primary) hypertension; E78.5 Hyperlipidemia, unspecified; E11.42 Type 2 diabetes mellitus with diabetic polyneuropathy; Z79.84 Long term (current) use of oral hypoglycemic drugs; Z79.85 Long-term (current) use of injectable non-insulin antidiabetic drugs; E66.9 Obesity, unspecified; Z68.36 Body mass index [BMI] 36.0-36.9, adult
CPT/HCPCS: 73562; 80053; 80061; 82043; 82570; 83036; 93971

== ENCOUNTER 2024-10-17 16:27 | Outpatient (CLI) | payer OTHER, SELFPAY ==
--- OUTSIDE RECORDS SUMMARY | 2024-10-17 16:29 | XMS_ITS | Encounter Summary ---
[facility] Organization [facility] Address [address] [place] [address] Care Team Providers Care Whiteprinting Machine Operator Name Role Phone Efrem Samaniego MD Primary Care Provider Encounter Details Date Type Department Care Team (Late st Contact Info) Description 11/17/2019 Telephone [facility] PROVID[facility] [address] [place] [address] Shyam Cardenas MD [address] [place] [address] Social History Tobacco Use Types Packs/Day Years Used Date Smoking Tobacco: Former Cigarettes 5 20 0 11/06/1984 - 11/06/2004 Smokeless Tobacco: Current Chew Alcohol Use Standard Drinks/Week Comments Not Currently 0 (1 standard drink = 0.6 oz pur e alcohol) Sex and Gender Information Value Date Recorded Sex Assigned at Not on file Legal Sex Male 11:46 AM EDT Gender Identity Not on file Sexual Orientation Not on file documented as of this encounter Plan of Treatment Not on file documented as of this encounter Visit Diagnoses Not on filedocumented in this encounter Additional Health Concerns Infection Onset Date Last Indicated Resolved Time COVID Screen (preop/placement) 12/19/2019 12/19/2019 12/20/2019 11:41 AM EDT documented as of this encounter Care Teams Whiteprinting Machine Operator Relationship Specialty Start Date End Date Efrem Samaniego MD [address] [facility] [address] ATTN: [place] [address] PCP - General Emergency Medicine 11/07/19 documented as of this encounter
--- OUTSIDE RECORDS SUMMARY | 2024-10-17 16:29 | XMS_ITS | Clinical Summary ---
Author Organization Healthcare Address [address] [place] [address] Care Team Providers Care Primary Care Md Name Role Phone Unavailable Primary Care Provider Unavailabl e Family History Medical History Relation Name Comments Cardiac disorder Father Hypertension Father Cardiac disorder Maternal Grandfather Hypertension Maternal Grandfather Cardiac disorder Maternal Grandmother Hypertension Maternal Grandmother Kidney disease Paternal Grandfather Kidney disease Paternal Grandmother Relation Name Status Comments Father Maternal Grandfather Maternal Grandmother Paternal Grandfather Paternal Grandmother Social History Tobacco Use Types Packs/Day Years Used Date Smoking Tobacco: Former Alcohol Use Standard Drinks/Week Comments Yes 0 (1 standard drink = 0.6 oz pur e alcohol) Sex and Gender Information Value Date Recorded Sex Assigned at Not on file Legal Sex Male 8:30 PM EDT Gender Identity Not on file Sexual Orientation Not on file Last Filed Vital Signs Vital Sign Reading Time Taken Comments Blood Pressure - - Pulse - - Temperature - - Respiratory Rate - - Oxygen Saturation - - Inhaled Oxygen Concentration - - Weight 125 kg (275 lb 2.2 oz) 04/23/2016 8:27 AM EST Height 188 cm (6' 2 ) 04/23/2016 8:27 AM EST Body Mass Index 35.33 04/23/2016 8:27 AM EST Plan of Treatment Not on file
--- OUTSIDE RECORDS SUMMARY | 2024-10-17 16:29 | XMS_ITS | Clinical Summary ---
Author Organization [facility] Address [address] [place] [address] Care Team Providers Care English Language Arts Teacher Name Role Phone Efrem Samaniego MD Primary Care Provider Allergies Active Allergy Reactions Criticality Noted Date Comments Penicillins Other (See Comments) Low 11/07/2019 Since childhood Medications ondansetron (ZOFRAN) 4 MG tablet Take 1 tablet by mouth Every 8 (Eight) Hours As Needed for Post-op Nausea 30 tablet 11/07/2019 4:55 PM EDT 11/07/2019 Active lisinopril (PRINIVIL,ZESTR IL) 10 MG tablet Take 10 mg by mouth 2 (two) times a day. Active oxyCODONE (ROXICODONE) 5 MG immediate release tablet Take 1 tablet by mouth Every 4 (Four) Hours As Needed for Moderate Pain . 60 tablet 12/21/2019 Active Active Problems No known active problems Social History Tobacco Use Types Packs/Day Years Used Date Smoking Tobacco: Former Cigarettes 5 20 0 11/06/1984 - 11/06/2004 Smokeless Tobacco: Current Chew Tobacco Cessation:Ready to Q uit: No Alcohol Use Standard Drinks/Week Comments Not Currently 0 (1 standard drink = 0.6 oz pur e alcohol) Abuse Screen Answer Date Recorded Unsafe at Home or Work/School Not on file Feels Threatened by Someone? Not on file 01/2023 Does Anyone Keep You from Co ntacting Others or Doint Things Outside the Home? Not on file 12/03/2022 Physical Sign of Abuse Present Not on file 1 Housing Stability Answer Date Recorded Current Living Arrangements Not on file 11/22 Potentially Unsafe Housing Conditions Not on sydni e 12/03/2022 Family and Community Support Answer Conrado e Recorded Help with Day-to-Day Activities Not on file 12/03/2022 Lonely or Isolated Not on file 12/03/2022 Employment Answer Date Recorded Do you want help finding or keeping work or a carol b? Not on file 12/03/2022 Disabilities Answer Date Recorded Concentrating, Remembering, or Making Decisions Difficulty Not on file 12/03/2022 Doing Errands Independently Difficulty Not on fi le 12/03/2022 Education Answer Date Recorded Help with school or training? Not on file Preferred Language Not on file 12/03/2022 Sex and Gender Information Value Date Recorded Sex Assigned at Not on file Legal Sex Male 11:46 AM EDT Gender Identity Not on file Sexual Orientation Not on file Last Filed Vital Signs Vital Sign Reading Time Taken Comments Blood Pressure 149/98 12/21/2019 7:15 PM EDT Pulse 55 12/21/2019 7:15 PM EDT Temperature 36.1 C (97 F) 12/21/2019 6:10 PM EDT Respiratory Rate 16 12/21/2019 7:15 PM EDT Oxygen Saturation 95% 12/21/2019 7:15 PM EDT Inhaled Oxygen Concentration - - Weight 122 kg (270 lb) 12/21/2019 2:03 PM EDT Height 185.4 cm (6' 1 ) 12/21/2019 2:03 PM EDT Body Mass Index 35.62 12/21/2019 2:03 PM EDT Plan of Treatment Health Maintenance Due Date Last Done Comments TDAP/TD VACCINES (1 - Tdap) 1992 COLOGUARD 2018 COLON CANCER SCREENING 5 YEAR SIGMOIDOSCOPY 2018 COLONOSCOPY 2018 [address] CANCER SCREENING 2018 CT COLONOGRAPHY 2018 FECAL OCCULT BLOOD TEST 2018 FIT Testing (1 year) 2018 ANNUAL PHYSICAL 11/07/2019 HEPATITIS C SCREENING 11/07/2019 COVID-19 Vaccine (1 - 2023- season) 2023 Pneumococcal Vaccine 50+ (1 of 1 - PCV) 11/12/2023 ZOSTER VACCINE (1 of 2) 11/12/2023 INFLUENZA VACCINE 11/22/2024 Medical Devices Implanted Type Area Catheterization Laboratory Technician Device Identifier Shelf Expiration Date Model / Serial / Lot Sys Sut/Anch Biocomp Speedbridge 4.85 12.5 - [id number] Implanted:Qty: 1 on 12/21/2019 by Shyam Cardenas MD at [facility] Implant Right: Shoulder ARTHREX 03/24/2023 [id number] Insurance [facility] Care Teams English Language Arts Teacher Relationship Specialty Start Date End Date Efrem Samaniego MD [address] [facility] [address] ATTN: [place] [address] PCP - General Emergency Medicine 11/07/19
[2024-10-17 16:56] LABS: Chloride 98 mmol/L (98-107); Potassium 3.9 mmoL/L (3.5-5.1); Sodium 137 mmol/L (136-145)
[2024-10-17 16:59] LABS: Blood Urea Nitrogen 20 mg/dl (9-20); Creatinine,Serum 0.80 mg/dl (0.66-1.25); Estimated Glomerular Filt Rate 102 ml/min (>60); GFR (African American) 124 ML/MIN (>60)
[2024-10-17 17:00] LABS: Anion Gap 12.9 mEq/L (5-15); Calcium 9.2 mg/dl (8.4-10.2); Carbon Dioxide 30 mmol/L (22.0-30.0); Glucose 267 mg/dl (74-100)
== END 2024-10-17 23:59 | disposition home or self-care (01) ==
PROVIDERS: PCP Family Medicine; Visit Provider Physician Assistant
DX: I25.10 Atherosclerotic heart disease of native coronary artery without angina pectoris (principal)
CPT/HCPCS: 36415; 80048